=== PATIENT | female | born 1985 | race Caucasian/White ===

== ENCOUNTER 2023-09-17 22:21 | Inpatient (IN) | payer MEDICAID, OTHER ==
[2023-09-17 23:52] LABS: Amphetamine Screen,Urine Detected (NotDetected); Barbiturate Screen,Urine Not Detected (NotDetected); Benzodiazepines Screen,Urine Not Detected (NotDetected); Cocaine Screen,Urine Not Detected (NotDetected); Methadone Screen, Urine Not Detected (NotDetected); Opiate Screen,Urine Not Detected (NotDetected); Oxycodone Screen, Urine Not Detected (NotDetected); Phencyclidine Screen,Urine Not Detected (NotDetected); Tricyclic Antidepressant,Urine Not Detected (NotDetected); Urn Cannabinoid Scrn Not Detected (NotDetected)
--- NOTE | 2023-09-18 02:30 | XR ---
EXAM: XR Chest, 1 View CLINICAL HISTORY: ITS.REASON XR Reason: cough TECHNIQUE: Frontal view of the chest. COMPARISON: No relevant prior studies available. FINDINGS: Lungs: Streaky right lower lung zone opacities. Lungs appear otherwise clear. Pleural space: Unremarkable. No pleural effusion or pneumothorax. Heart: Unremarkable. No cardiomegaly or pulmonary vascular congestion. Bones/joints: No acute fracture. No dislocation. IMPRESSION: Streaky right lower lung zone opacities, potentially infiltrate.
[2023-09-18] MEDS ORDERED: AZITHROMYCIN 500 MG TAB PO STA (02:51)
[2023-09-18] MEDS: AZITHROMYCIN 500 MG TAB PO STA (03:07)
[2023-09-18] MEDS: ACETAMINOPHEN TAB 500 MG TAB PO STA (04:22)
--- NOTE | 2023-09-18 05:28 | ED ---
General Adult HPI <Dao Calixto - Last Filed: 09/18/23 17:36> - General Source: patient, RN notes reviewed, old records reviewed Mode of arrival: ambulatory Limitations: no limitations <Guzman Magana - Last Filed: 09/20/23 07:23> <Niko Reeves - Last Filed: 09/21/23 12:49> - General Chief complaint: Psychiatric Symptoms Stated complaint: mental health 7 months Time Seen by Provider: 09/17/23 22:50 - History of Present Illness Initial comments: Patient is a 38-year-old female who presents emergency department complaining of psychiatric illness. Patient is having what seems to be a manic episode vs substance abuse with flight of ideas, suicidal ideation with plan to take potass ium to overdose. Denies doing any of this. States she is also multiple months and believes it to be 8 months . Is endorsing a mild cough as well and is concerned she may have an infection. Has not followed up for . Denies any vaginal discharge or bleeding. Denies any abdominal pain, nausea, vomiting. Has no other acute complaints at this time. Presents with boyfriend for psychiatric evaluation. (Guzman Magana) - Related Data Home Medications Medication Instructions Recorded Confirmed Cephalexin [Keflex] 500 mg PO Q6H 09/18/23 09/18/23 Allergies Allergy/AdvReac Type Severity Reaction Status Date / Time diphenhydramine AdvReac Unknown Verified 09/18/23 17:58 [From Benadryl] Review of Systems ROS Other: All systems not noted in ROS Statement are negative. <DurgaDao - Last Filed: 09/18/23 17:36> ROS Other: All systems not noted in ROS Statement are negative. <Guzman Magana - Last Filed: 09/20/23 07:23> ROS Other: All systems not noted in ROS Statement are negative. <Niko Reeves - Last Filed: 09/21/23 12:49> ROS Statement: Those systems with pertinent positive or pertinent negative responses have been documented in the HPI. Review of Systems: CONST: Denies fever EYES: Denies blurry vision ENT: Endorses nasal congestion C/V: Denies Chest pain RESP: Denies shortness of breath GI: Denies abdominal pain : Denies dysuria SKIN: Denies rash. MSK: Denies joint pain. NEURO: Denies headache (Guzman Magana) Past Medical History Smoking Status: Current every day smoker, Vaper Past Alcohol Use History: Occasional Past Drug Use History: Unable to Obtain <Guzman Magana - Last Filed: 09/20/23 07:23> General Exam Limitations: no limitations <ChinoGuzman - Last Filed: 09/20/23 07:23> - General Exam Comments Initial Comments: General: Appears in no acute distress. HEAD: Normal with no signs of head trauma. EYES: PERRLA, EOMI, conjunctiva normal, no discharge. ENT: Hearing grossly intact, normal oropharynx. RESPIRATORY: Clear breath sounds bilaterally. No wheezes, rales, or rhonchi. C/V: Regular rate and rhythm. S1 and S2 auscultated, no edema, peripheral pulses 2+ and intact throughout ABD: Abd is soft, nontender, nondistended EXT: Normal range of motion, no obvious deformity SKIN: No rashes or lesions observed on exposed skin. NEURO: Alert and oriented x 4. (Guzman Magana) Course <Dao Calixto - Last Filed: 09/18/23 17:36> Vital Signs 09/17/23 09/18/23 09/18/23 22:28 06:15 07:29 Temperature 98.3 F 98.1 F Pulse Rate 117 H 92 Respiratory 18 18 16 Rate Blood Pressure 138/83 126/78 O2 Sat by Pulse 100 98 Oximetry 09/18/23 09/18/23 09/18/23 10:00 14:00 15:00 Temperature Pulse Rate Respiratory 18 18 18 Rate Blood Pressure O2 Sat by Pulse Oximetry 09/18/23 09/18/23 09/19/23 16:31 18:55 03:00 Temperature 98.2 F 98.0 F Pulse Rate 88 76 Respiratory 18 18 17 Rate Blood Pressure 121/73 120/71 O2 Sat by Pulse 99 97 Oximetry 09/19/23 09/21/23 12:21 06:51 Temperature 98.2 F Pulse Rate 102 H 78 Respiratory 18 18 Rate Blood Pressure 135/78 122/72 O2 Sat by Pulse 98 98 Oximetry - Reevaluation(s) Reevaluation #1: 09/18/23 17:36 Clinical certification was filled out by me. I did personally examine the patient. (Dao Calixto) Medical Decision Making - Lab Data Result diagrams: 09/18/23 15:08 09/18/23 15:08 <Dao Calixto - Last Filed: 09/18/23 17:36> - Lab Data Result diagrams: 09/18/23 15:08 09/18/23 15:08 - EKG Data -: EKG Interpreted by Me <Guzman Magana - Last Filed: 09/20/23 07:23> - Lab Data Result diagrams: 09/18/23 15:08 09/18/23 15:08 <Nkio Reeves - Last Filed: 09/21/23 12:49> - Medical Decision Making Was pt. sent in by a medical professional or institution (, PA, BUSHER HELPER, urgent care, hospital, or skilled nursing...) When possible be specific @ -No Did you speak to anyone other than the patient for history (EMS, parent, family, police, friend...)? What history was obtained from this source @ -No Did you review nursing and triage notes (agree or disagree)? Why? @ -I reviewed and agree with nursing and triage notes Were old charts reviewed (outside hosp., previous admission, EMS record, old EKG, old radiological studies, urgent care reports/EKG's, skilled nursing records)? Report findings @ -No old charts were reviewed Differential Diagnosis (chest pain, altered mental status, abdominal pain women, abdominal pain men, vaginal bleeding, weakness, fever, dyspnea, syncope, headache, dizziness, GI bleed, back pain, seizure, CVA, palpatations, mental health, musculoskeletal)? @ -Differential Mental Health Depression, anxiety, bipolar, psychosis, schizophrenia, borderline personality, situational depression, adjustment disorder, behavioral disorder, brain tumor, malingering, substance abuse, encephalopathy, medication reaction, dementia, hypothyroidism, degenerative neurologic disorder, lupus.... This is not meant to be all-inclusive list EKG interpreted by me (3pts min.). @ -As above X-rays interpreted by me (1pt min.). @ -Chest x-ray shows possible right lower lobe pneumonia CT interpreted by me (1pt min.). @ -None done U/S interpreted by me (1pt. min.). @ -None done What testing was considered but not performed or refused? (CT, X-rays, U/S, labs)? Why? @ -None What meds were considered but not given or refused? Why? @ -None Did you discuss the management of the patient with other professionals (professionals i.e. , PA, BUSHER HELPER, lab, RT, psych nurse, clinical social work aide, university librarian, teacher, probation and parole officer, rehabilitation caseworker)? Give summary @ -EPS notified of the consult. Was smoking cessation discussed for >3mins.? @ -No Was critical care preformed (if so, how long)? @ -No Were there social determinants of health that impacted care today? How? (Homelessness, low income, unemployed, alcoholism, drug addiction, transportation, low edu. Level, literacy, decrease access to med. care, assisted, rehab)? @ -No Was there de-escalation of care discussed even if they declined (Discuss DNR or withdrawal of care, Hospice)? DNR status @ -No What co-morbidities impacted this encounter? (DM, HTN, Smoking, COPD, CAD, Cancer, CVA, ARF, Chemo, Hep., AIDS, mental health diagnosis, sleep apnea, morbid obesity)? @ -None Was patient admitted / discharged? Hospital course, mention meds given and route, prescriptions, significant lab abnormalities, going to OR and other pertinent info. @ -Based on the patient's presentation and physical exam, presents for psychiatric evaluation. Concern for possible manic episode or psychosis. Currently is cooperative and alert and oriented. BAT is 0.122. UDS is positive for amphetamines. Patient is also noted to be with no risk factors otherwise. She has not yet followed up for this . Unknown how she is. But denies any vaginal discharge, bleeding, abdominal pain, cramping. Vital signs within acceptable limits. Chest x-ray shows findings concerning for possible developing pneumonia. She will be started on a Z-Alex. EKG shows no signs of acute ischemia. Vital signs are within acceptable limits. heart tones obtained and were within acceptable limits in the 150s. Patient will be medically cleared once sober. EPS was notified of the consult. Disposition pending psychiatric evaluation. EPS eventually evaluated the patient and determined that she does meet inpatient criteria. Patient pending psychiatric transfer. Undiagnosed new problem with uncertain prognosis? @ -No Drug Therapy requiring intensive monitoring for toxicity (Heparin, Nitro, Insulin, Cardizem)? @ -No Were any procedures done? @ -No Diagnosis/symptom? @ -Community acquired pneumonia, suicidal ideations, alcohol intoxication Acute, or Chronic, or Acute on Chronic? @ -Acute Uncomplicated (without systemic symptoms) or Complicated (systemic symptoms)? @ -Complicated Side effects of treatment? @ -None Exacerbation, Progression, or Severe Exacerbation] @ -No Poses a threat to life or bodily function? @ -Yes Diagnosis/symptom? @ - Acute, or Chronic, or Acute on Chronic? @ -Acute Uncomplicated (without systemic symptoms) or Complicated (systemic symptoms)? @ -Uncomplicated Side effects of treatment? @ -None Exacerbation, Progression, or Severe Exacerbation] @ -No Poses a threat to life or bodily function? @ -No (Guzman Magana) - Lab Data Lab Results 09/17/23 09/17/23 09/18/23 Range/Units 23:00 23:00 01:46 WBC (3.8-10.6) k/uL RBC (3.80-5.40) m/uL Hgb (11.4-16.0) gm/dL Hct (34.0-46.0) % MCV (80.0-100.0) fL MCH (25.0-35.0) pg MCHC (31.0-37.0) g/dL RDW (11.5-15.5) % Plt Count (150-450) k/uL MPV Neutrophils % % Lymphocytes % % Monocytes % % Eosinophils % % Basophils % % Neutrophils # (1.3-7.7) k/uL Lymphocytes # (1.0-4.8) k/uL Monocytes # (0-1.0) k/uL Eosinophils # (0-0.7) k/uL Basophils # (0-0.2) k/uL Hypochromasia Sodium (137-145) mmol/L Potassium (3.5-5.1) mmol/L Chloride (98-107) mmol/L Carbon Dioxide (22-30) mmol/L Anion Gap mmol/L BUN (7-17) mg/dL Creatinine (0.52-1.04) mg/dL Est GFR (CKD-EPI)AfAm (>60 ml/min/1.73 sqM) Est GFR (CKD-EPI)NonAf (>60 ml/min/1.73 sqM) Glucose (74-99) mg/dL Calcium (8.4-10.2) mg/dL Total Bilirubin (0.2-1.3) mg/dL AST (14-36) U/L ALT (4-34) U/L Alkaline Phosphatase (38-126) U/L Total Protein (6.3-8.2) g/dL Albumin (3.5-5.0) g/dL Urine Color Urine Appearance (Clear) Urine pH (5.0-8.0) Ur Specific [place] (1.001-1.035) Urine Protein (Negative) Urine Glucose (UA) (Negative) Urine Ketones (Negative) Urine Blood (Negative) Urine Nitrite (Negative) Urine Bilirubin (Negative) Urine Urobilinogen (<2.0) mg/dL Ur Leukocyte Esterase (Negative) Urine WBC (0-5) /hpf Ur Squamous Epith Cells (0-4) /hpf Amorphous Sediment (None) /hpf Urine Mucus (None) /hpf Urine HCG, Qual Detected (Not Detectd) Urine Opiates Screen Not Detected (NotDetected) Ur Oxycodone Screen Not Detected (NotDetected) Urine Methadone Screen Not Detected (NotDetected) Ur Barbiturates Screen Not Detected (NotDetected) U Tricyclic Antidepress Not Detected (NotDetected) Ur Phencyclidine Scrn Not Detected (NotDetected) Ur Amphetamines Screen Detected H (NotDetected) U Methamphetamines Scrn Not Detected (NotDetected) U Benzodiazepines Scrn Not Detected (NotDetected) Urine Cocaine Screen Not Detected (NotDetected) U Marijuana (THC) Screen Not Detected (NotDetected) Influenza Type A (PCR) Not Detected (Not Detectd) Influenza Type B (PCR) Not Detected (Not Detectd) RSV (PCR) Not Detected (Not Detectd) SARS-CoV-2 (PCR) Not Detected (Not Detectd) 09/18/23 09/18/23 09/18/23 Range/Units 15:08 15:08 15:57 WBC 10.4 (3.8-10.6) k/uL RBC 3.45 L (3.80-5.40) m/uL Hgb 9.5 L (11.4-16.0) gm/dL Hct 29.4 L (34.0-46.0) % MCV 85.0 (80.0-100.0) fL MCH 27.6 (25.0-35.0) pg MCHC 32.4 (31.0-37.0) g/dL RDW 14.3 (11.5-15.5) % Plt Count 370 (150-450) k/uL MPV 8.0 Neutrophils % 71 % Lymphocytes % 17 % Monocytes % 5 % Eosinophils % 5 % Basophils % 1 % Neutrophils # 7.4 (1.3-7.7) k/uL Lymphocytes # 1.8 (1.0-4.8) k/uL Monocytes # 0.5 (0-1.0) k/uL Eosinophils # 0.5 (0-0.7) k/uL Basophils # 0.1 (0-0.2) k/uL Hypochromasia Slight Sodium 135 L (137-145) mmol/L Potassium 3.6 (3.5-5.1) mmol/L Chloride 110 H (98-107) mmol/L Carbon Dioxide 18 L (22-30) mmol/L Anion Gap 7 mmol/L BUN 6 L (7-17) mg/dL Creatinine 0.40 L (0.52-1.04) mg/dL Est GFR (CKD-EPI)AfAm >90 (>60 ml/min/1.73 sqM) Est GFR (CKD-EPI)NonAf >90 (>60 ml/min/1.73 sqM) Glucose 116 H (74-99) mg/dL Calcium 8.2 L (8.4-10.2) mg/dL Total Bilirubin 0.3 (0.2-1.3) mg/dL AST 26 (14-36) U/L ALT 17 (4-34) U/L Alkaline Phosphatase 103 (38-126) U/L Total Protein 5.3 L (6.3-8.2) g/dL Albumin 2.5 L (3.5-5.0) g/dL Urine Color Colorless Urine Appearance Cloudy H (Clear) Urine pH 8.0 (5.0-8.0) Ur Specific [place] 1.012 (1.001-1.035) Urine Protein Negative (Negative) Urine Glucose (UA) Negative (Negative) Urine Ketones Negative (Negative) Urine Blood Negative (Negative) Urine Nitrite Negative (Negative) Urine Bilirubin Negative (Negative) Urine Urobilinogen <2.0 (<2.0) mg/dL Ur Leukocyte Esterase Trace H (Negative) Urine WBC 2 (0-5) /hpf Ur Squamous Epith Cells 2 (0-4) /hpf Amorphous Sediment Rare H (None) /hpf Urine Mucus Rare H (None) /hpf Urine HCG, Qual (Not Detectd) Urine Opiates Screen (NotDetected) Ur Oxycodone Screen (NotDetected) Urine Methadone Screen (NotDetected) Ur Barbiturates Screen (NotDetected) U Tricyclic Antidepress (NotDetected) Ur Phencyclidine Scrn (NotDetected) Ur Amphetamines Screen (NotDetected) U Methamphetamines Scrn (NotDetected) U Benzodiazepines Scrn (NotDetected) Urine Cocaine Screen (NotDetected) U Marijuana (THC) Screen (NotDetected) Influenza Type A (PCR) (Not Detectd) Influenza Type B (PCR) (Not Detectd) RSV (PCR) (Not Detectd) SARS-CoV-2 (PCR) (Not Detectd) 09/21/23 Range/Units 10:30 WBC (3.8-10.6) k/uL RBC (3.80-5.40) m/uL Hgb (11.4-16.0) gm/dL Hct (34.0-46.0) % MCV (80.0-100.0) fL MCH (25.0-35.0) pg MCHC (31.0-37.0) g/dL RDW (11.5-15.5) % Plt Count (150-450) k/uL MPV Neutrophils % % Lymphocytes % % Monocytes % % Eosinophils % % Basophils % % Neutrophils # (1.3-7.7) k/uL Lymphocytes # (1.0-4.8) k/uL Monocytes # (0-1.0) k/uL Eosinophils # (0-0.7) k/uL Basophils # (0-0.2) k/uL Hypochromasia Sodium (137-145) mmol/L Potassium (3.5-5.1) mmol/L Chloride (98-107) mmol/L Carbon Dioxide (22-30) mmol/L Anion Gap mmol/L BUN (7-17) mg/dL Creatinine (0.52-1.04) mg/dL Est GFR (CKD-EPI)AfAm (>60 ml/min/1.73 sqM) Est GFR (CKD-EPI)NonAf (>60 ml/min/1.73 sqM) Glucose (74-99) mg/dL Calcium (8.4-10.2) mg/dL Total Bilirubin (0.2-1.3) mg/dL AST (14-36) U/L ALT (4-34) U/L Alkaline Phosphatase (38-126) U/L Total Protein (6.3-8.2) g/dL Albumin (3.5-5.0) g/dL Urine Color Urine Appearance (Clear) Urine pH (5.0-8.0) Ur Specific [place] (1.001-1.035) Urine Protein (Negative) Urine Glucose (UA) (Negative) Urine Ketones (Negative) Urine Blood (Negative) Urine Nitrite (Negative) Urine Bilirubin (Negative) Urine Urobilinogen (<2.0) mg/dL Ur Leukocyte Esterase (Negative) Urine WBC (0-5) /hpf Ur Squamous Epith Cells (0-4) /hpf Amorphous Sediment (None) /hpf Urine Mucus (None) /hpf Urine HCG, Qual (Not Detectd) Urine Opiates Screen (NotDetected) Ur Oxycodone Screen (NotDetected) Urine Methadone Screen (NotDetected) Ur Barbiturates Screen (NotDetected) U Tricyclic Antidepress (NotDetected) Ur Phencyclidine Scrn (NotDetected) Ur Amphetamines Screen (NotDetected) U Methamphetamines Scrn (NotDetected) U Benzodiazepines Scrn (NotDetected) Urine Cocaine Screen (NotDetected) U Marijuana (THC) Screen (NotDetected) Influenza Type A (PCR) (Not Detectd) Influenza Type B (PCR) (Not Detectd) RSV (PCR) (Not Detectd) SARS-CoV-2 (PCR) Not Detected (Not Detectd) - EKG Data EKG Comments: 12-lead Electrocardiogram Interpretation Note EKG was reviewed and interpreted by myself. 12-lead ECG performed at 0140 is interpreted by me as revealing sinus tachycardia at a rate of 103 beats per minute. [place] is normal. ID interval is 131 ms, QRS duration is 83 ms, QTc is 407 ms.. There were no ST or T wave abnormalities to suggest myocardial ischemia or injury. R wave progression across the precordium was satisfactory. By my interpretation this EKG is non-diagnostic for acute ischemia. (Guzman Magana) Disposition <Dao Calixto - Last Filed: 09/18/23 17:36> <Guzman Magana - Last Filed: 09/20/23 07:23> <Niko Reeves - Last Filed: 09/21/23 12:49> Clinical Impression: Suicidal ideation, , Community acquired pneumonia, Alcohol intoxication Disposition: ADMITTED IP TO THIS HOSP Condition: Stable Referrals: None,Stated [Primary Care Provider] - 1-2 days
[2023-09-18 15:28] LABS: Basophils # (A) 0.1 k/uL (0-0.2); Basophils % (A) 1 %; Eosinophils # (A) 0.5 k/uL (0-0.7); Eosinophils % (A) 5 %; HCT 29.4 % (34.0-46.0); HGB 9.5 gm/dL (11.4-16.0); Hypochromasia Slight; Lymphocytes # (A) 1.8 k/uL (1.0-4.8); Lymphocytes % (A) 17 %; MCH 27.6 pg (25.0-35.0); MCHC 32.4 g/dL (31.0-37.0); Monocytes # (A) 0.5 k/uL (0-1.0); Monocytes % (A) 5 %; Neutrophils # (A) 7.4 k/uL (1.3-7.7); Neutrophils % (A) 71 %; Platelet Count 370 k/uL (150-450); RBC 3.45 m/uL (3.80-5.40); RDW 14.3 % (11.5-15.5); WBC 10.4 k/uL (3.8-10.6)
[2023-09-18 15:37] LABS: ALT 17 U/L (4-34); AST 26 U/L (14-36); African American GFR (CKD) >90 (>60 ml/min/1.73 sqM); Albumin 2.5 g/dL (3.5-5.0); Alkaline Phosphatase 103 U/L (38-126); Anion Gap 7 mmol/L; Blood Urea Nitrogen 6 mg/dL (7-17); Calcium 8.2 mg/dL (8.4-10.2); Carbon Dioxide 18 mmol/L (22-30); Chloride 110 mmol/L (98-107); Glucose 116 mg/dL (74-99); Non-African American GFR(CKD) >90 (>60 ml/min/1.73 sqM); Potassium 3.6 mmol/L (3.5-5.1); Sodium 135 mmol/L (137-145); Total Bilirubin 0.3 mg/dL (0.2-1.3); Total Protein 5.3 g/dL (6.3-8.2)
[2023-09-18] MEDS: MAG HYDROX/AL HYDROX/SIMETH 30 ML CUP PO STA (15:49)
[2023-09-18 16:13] LABS: Amorphous Sediment,Urine Rare /hpf; Appearance,Urine Cloudy (Clear); Bilirubin,Urine Negative (Negative); Blood,Urine Negative (Negative); Color,Urine Colorless; Glucose,Urine (UA) Negative (Negative); Ketones,Urine Negative (Negative); Leukocyte Esterase,Urine Trace (Negative); Mucus,Urine Rare /hpf; Nitrite,Urine Negative (Negative); Protein,Urine Negative (Negative); Specific Gravity,Urine 1.012 (1.001-1.035); Squamous Epithelial Cell,Urine 2 /hpf (0-4); Urobilinogen,Urine <2.0 mg/dL (<2.0); WBC,Urine 2 /hpf (0-5)
[2023-09-18] MEDS: CEPHALEXIN 500 MG CAP PO SCH (19:06)
[2023-09-19] MEDS: MAG HYDROX/AL HYDROX/SIMETH 30 ML CUP PO STA ×2 (00:59→09:32)
[2023-09-19] MEDS ORDERED: AZITHROMYCIN 250 MG TAB PO SCH (09:00)
[2023-09-19] MEDS: FAMOTIDINE 20 MG TAB PO STA (14:54)
[2023-09-20] MEDS: CALCIUM CARBONATE 500 MG CHEWABLE PO PRN (22:47)
[2023-09-21] MEDS: FAMOTIDINE 20 MG TAB PO STA ×2 (00:05→00:36)
--- NOTE | 2023-09-21 11:55 | US ---
EXAMINATION TYPE: US OB >= 14 wk fetus DATE OF EXAM: 09/21/2023 COMPARISON: None CLINICAL INDICATION: Female, 38 years old with history of Determine length of gestation; suicidal pat ient with h/o drug use, unknown dates, no pain or bleeding TECHNIQUE: OBTA GESTATIONAL AGE / DATING Physician Established: Not yet established Dates by LMP: LMP unknown Dates by First Scan: No previous this is first scan Dates by Current Scan: (30 weeks/1 days) EDC: 11/29/2023 SURVEY IUP: Single PLACENTA: Anterior PREVIA: No Previa DE: 22.1 cm Normal CERVICAL LENGTH (transabdominal: norm > 3.0cm): 3.3 cm BIOMETRY PRESENTATION: Breech LIE: Longitudinal BPD: 7.5 cm 30 weeks / 1 days HC: 28.0 cm 30 weeks / 5 days AC: 25.9 cm 30 weeks / 1 days FL: 5.5 cm 29 weeks / 1 days ESTIMATED WEIGHT IN GRAMS: 1456 grams ESTIMATED WEIGHT IN LBS/OZ: 3 lbs. 3 oz. HC/AC: 1.1 Normal FL/AC: 21 Normal HEART RATE: 139 bpm RHYTHM: Normal IMPRESSION: Viable 30 weeks 3 days with a heart rate 139 bpm. EDC of 11/29/2023.
[2023-09-21] MEDS ORDERED: IBUPROFEN 600 MG TAB PO PRN (13:25)
[2023-09-21] MEDS: MAG HYDROX/AL HYDROX/SIMETH 30 ML CUP PO PRN (15:15)
[2023-09-21] MEDS: QUEtiapine 25 MG TAB PO PRN (15:16)
[2023-09-22] MEDS: FAMOTIDINE 20 MG TAB PO STA (04:25)
[2023-09-22] MEDS: FAMOTIDINE 20 MG TAB PO SCH (09:10)
--- NOTE | 2023-09-22 10:32 | P.HP ---
Psychiatric H&P - . H&P Date: 09/22/23 History & Physical: Allergies Allergy/AdvReac Type Severity Reaction Status Date / Time diphenhydramine AdvReac Unknown Verified 09/18/23 17:58 [From Benadryl] Vital Signs Temp 97.1 F L 09/21/23 15:01 Pulse 95 09/21/23 15:01 Resp 18 09/21/23 15:01 BP 132/71 09/21/23 15:01 Pulse Ox 100 09/21/23 15:01 FiO2 Intake & Output 09/21/23 09/22/23 09/22/23 18:59 06:59 18:59 Weight 74.9 kg Laboratory Last Values WBC 10.4 k/uL (3.8-10.6) 09/18/23 15:08 RBC 3.45 m/uL (3.80-5.40) L 09/18/23 15:08 Hgb 9.5 gm/dL (11.4-16.0) L 09/18/23 15:08 Hct 29.4 % (34.0-46.0) L 09/18/23 15:08 MCV 85.0 fL (80.0-100.0) 09/18/23 15:08 MCH 27.6 pg (25.0-35.0) 09/18/23 15:08 MCHC 32.4 g/dL (31.0-37.0) 09/18/23 15:08 RDW 14.3 % (11.5-15.5) 09/18/23 15:08 Plt Count 370 k/uL (150-450) 09/18/23 15:08 MPV 8.0 09/18/23 15:08 Neutrophils % 71 % 09/18/23 15:08 Lymphocytes % 17 % 09/18/23 15:08 Monocytes % 5 % 09/18/23 15:08 Eosinophils % 5 % 09/18/23 15:08 Basophils % 1 % 09/18/23 15:08 Neutrophils # 7.4 k/uL (1.3-7.7) 09/18/23 15:08 Lymphocytes # 1.8 k/uL (1.0-4.8) 09/18/23 15:08 Monocytes # 0.5 k/uL (0-1.0) 09/18/23 15:08 Eosinophils # 0.5 k/uL (0-0.7) 09/18/23 15:08 Basophils # 0.1 k/uL (0-0.2) 09/18/23 15:08 Hypochromasia Slight 09/18/23 15:08 Sodium 135 mmol/L (137-145) L 09/18/23 15:08 Potassium 3.6 mmol/L (3.5-5.1) 09/18/23 15:08 Chloride 110 mmol/L (98-107) H 09/18/23 15:08 Carbon Dioxide 18 mmol/L (22-30) L 09/18/23 15:08 Anion Gap 7 mmol/L 09/18/23 15:08 BUN 6 mg/dL (7-17) L 09/18/23 15:08 Creatinine 0.40 mg/dL (0.52-1.04) L 09/18/23 15:08 Est GFR (CKD-EPI)AfAm >90 (>60 ml/min/1.73 sqM) 09/18/23 15:08 Est GFR (CKD-EPI)NonAf >90 (>60 ml/min/1.73 sqM) 09/18/23 15:08 Glucose 116 mg/dL (74-99) H 09/18/23 15:08 Calcium 8.2 mg/dL (8.4-10.2) L 09/18/23 15:08 Total Bilirubin 0.3 mg/dL (0.2-1.3) 09/18/23 15:08 AST 26 U/L (14-36) 09/18/23 15:08 ALT 17 U/L (4-34) 09/18/23 15:08 Alkaline Phosphatase 103 U/L (38-126) 09/18/23 15:08 Total Protein 5.3 g/dL (6.3-8.2) L 09/18/23 15:08 Albumin 2.5 g/dL (3.5-5.0) L 09/18/23 15:08 Urine Color Colorless 09/18/23 15:57 Urine Appearance Cloudy (Clear) H 09/18/23 15:57 Urine pH 8.0 (5.0-8.0) 09/18/23 15:57 Ur Specific [place] 1.012 (1.001-1.035) 09/18/23 15:57 Urine Protein Negative (Negative) 09/18/23 15:57 Urine Glucose (UA) Negative (Negative) 09/18/23 15:57 Urine Ketones Negative (Negative) 09/18/23 15:57 Urine Blood Negative (Negative) 09/18/23 15:57 Urine Nitrite Negative (Negative) 09/18/23 15:57 Urine Bilirubin Negative (Negative) 09/18/23 15:57 Urine Urobilinogen <2.0 mg/dL (<2.0) 09/18/23 15:57 Ur Leukocyte Esterase Trace (Negative) H 09/18/23 15:57 Urine WBC 2 /hpf (0-5) 09/18/23 15:57 Ur Squamous Epith Cells 2 /hpf (0-4) 09/18/23 15:57 Amorphous Sediment Rare /hpf (None) H 09/18/23 15:57 Urine Mucus Rare /hpf (None) H 09/18/23 15:57 Urine HCG, Qual Detected (Not Detectd) 09/17/23 23:00 Urine Opiates Screen Not Detected (NotDetected) 09/17/23 23:00 Ur Oxycodone Screen Not Detected (NotDetected) 09/17/23 23:00 Urine Methadone Screen Not Detected (NotDetected) 09/17/23 23:00 Ur Barbiturates Screen Not Detected (NotDetected) 09/17/23 23:00 U Tricyclic Antidepress Not Detected (NotDetected) 09/17/23 23:00 Ur Phencyclidine Scrn Not Detected (NotDetected) 09/17/23 23:00 Ur Amphetamines Screen Detected (NotDetected) H 09/17/23 23:00 U Methamphetamines Scrn Not Detected (NotDetected) 09/17/23 23:00 U Benzodiazepines Scrn Not Detected (NotDetected) 09/17/23 23:00 Urine Cocaine Screen Not Detected (NotDetected) 09/17/23 23:00 U Marijuana (THC) Screen Not Detected (NotDetected) 09/17/23 23:00 Influenza Type A (PCR) Not Detected (Not Detectd) 09/18/23 01:46 Influenza Type B (PCR) Not Detected (Not Detectd) 09/18/23 01:46 RSV (PCR) Not Detected (Not Detectd) 09/18/23 01:46 SARS-CoV-2 (PCR) Not Detected (Not Detectd) 09/21/23 10:30 09/22/23 10:27 This is a psychiatric assessment on this patient was a 38-year-old female with long history of depression Patient reports that she also has a history of depression She stated that she has a 5-year-old child from a previous relationship that is now living with his biological father She said that in between she had had an few years ago She says that she is currently here because of depression and that she said about 7 months She says that she is currently taking some Seroquel when necessary but now on her condition to get any worse She denies that she is suicidal or homicidal but states that she came in as a precautionary measure She said that she currently lives with her boyfriend who is supportive She denies any suicidal or homicidal ideations denied any auditory or visual hallucinations She admits that she however was feeling overwhelmed helpless and hopeless and was afraid that she might do something and came in for safety She is not sure if she wants to take any medications if it does had any effect on the unborn child Past history personal and social history Patient has mentioned above remained somewhat vague and superficial She currently lives with her boyfriend She is currently unemployed She denies any alcohol or substance use She remains very superficial about any past psychiatric treatment but states that she has not been following up in any therapy or treatment Mental status examination: Reveals a middle-aged female who looks somewhat older for age. Patient is alert and oriented to place and person Patient has her hair dyed red and is in street clothes are bright in color Affect at this time appears to be fair Thought processes are goal-directed sequential and logical Patient denies any suicidal or homicidal ideations or plans Cognitively she appears be intact Patient's formal and operational judgment appears to be fair Patient does seem to have insight Diagnostic impression: Adjustment disorder with mixed emotional features Major depressive disorder chronic with acute exacerbation Rule out personality disorder with borderline traits History of depression Plan: IMPRESSIONS: psychosis, unspecified cannabis use disorder PLAN: -Patient is admitted under involuntary status to [facility]HU for stabilization of psychiatric symptoms and safety. -Medications : Patient was prescribed Seroquel 25 mg 3 times a day she has been taking it as needed basis Patient was briefed on the effects and side effects including being class C drug as well as all the other drugs that may be recommended which may belong to the same class and that there is always a certain degree of risk and we'll hold although with her being in seventh month that there also appears to be less concerned as in the first trimester -NRT - nonsmoker -SW on board for discharge planning. Encourage patient to participate in groups to work on coping skills. Will await deferral and court date. Patient will also participate in on the [facility] activities individual milieu group OT RT PT and pharmacotherapy Approximately length of stay would be 5-7 days Micah Hoskins M.D.
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
[2023-09-22] MEDS: PRENATAL VIT-IRON-FOLIC ACID 1 EACH TABLET PO SCH (17:44)
[2023-09-23] MEDS: DOCUSATE 100 MG CAP PO PRN (10:12)
[2023-09-23] MEDS: DIPH,PERTUS(ACELL)TETVAC-LF 0.5 ML VIAL IM ONE (10:18)
--- NOTE | 2023-09-23 12:01 | P.PN ---
Subjective Progress Note Date: 09/23/23 Principal diagnosis: Adjustment disorder with mixed emotional features Psychotic disorder unspecified Polysubstance use disorder Alcohol use disorder Subjective data: Patient admits that she has been dealing with mood swings and depression although she continues to minimize that she's been drinking as well as using different drugs When asked about the specific drugs that she has used patient states that she does not want to have that go on her chart She reports that emotionally she is feeling better She said that she wants to take the Seroquel as a scheduled medication since she does not seem to remember to ask for the when necessary doses She stated that she is coping better and is thinking about going back to her routine life She says that she realizes that none of the medications will be safe in the but continues to minimize her polysubstance use disorder until now she says that part of the time she was unaware that she was even Mental status examination: Mental status examination: Reveals a middle-aged female who looks somewhat older for age. Patient is alert and oriented to place and person Patient has her hair dyed red and is in street clothes are bright in color Affect at this time appears to be fair Thought processes are goal-directed sequential and logical Patient denies any suicidal or homicidal ideations or plans Cognitively she appears be intact Patient's formal and operational judgment appears to be fair Patient does seem to have insight continues to rationalize intellectualize Diagnostic impression: Adjustment disorder with mixed emotional features Major depressive disorder chronic with acute exacerbation Rule out personality disorder with borderline traits History of depression Alcohol use disorder Polysubstance use disorder PLAN: -Patient is admitted under involuntary status to [facility] for stabilization of psychiatric symptoms and safety. -Medications : Patient was prescribed Seroquel 25 mg 3 times a day she has been taking it as needed basis and wants to change it to regular dosage Patient was briefed on the effects and side effects including being class C drug as well as all the other drugs that may be recommended which may belong to the same class and that there is always a certain degree of risk and we'll hold although with her being in seventh month that there also appears to be less concerned as in the first trimester -NRT - nonsmoker -SW on board for discharge planning. Encourage patient to participate in groups to work on coping skills. Will await deferral and court date. Patient will also participate in on the [facility] activities individual milieu group OT RT PT and pharmacotherapy Approximately length of stay would be 5-7 days Micah Hoskins M.D. Objective - Vital Signs Vital signs: Vital Signs Temp 97.9 F 09/23/23 02:35 Pulse 113 H 09/23/23 02:35 Resp 16 09/23/23 02:35 BP 115/74 09/23/23 02:35 Pulse Ox 100 09/21/23 15:01 FiO2 - Labs CBC & Chem 7: 09/18/23 15:08 09/18/23 15:08
[2023-09-23] MEDS: FERROUS SULFATE 325 MG TAB PO SCH (13:31)
[2023-09-23] MEDS: QUEtiapine 25 MG TAB PO SCH (15:13)
[2023-09-23 16:46] LABS: Hepatitis B Surface Antigen Nonreactive
[2023-09-23 20:23] LABS: HIV 2 AB Non-Reactive (Non-Reactive); HIV AB P24 Non-Reactive (Non-Reactive); HIV P24 AG Non-Reactive (Non-Reactive)
[2023-09-23 20:32] LABS: Chol/HDL Ratio 4.45 Ratio; LDL Cholesterol,Calculated 148.7 mg/dL (0.0-131.0)
[2023-09-23] MEDS: FAMOTIDINE 20 MG TAB PO SCH (21:25)
[2023-09-24] MEDS: ACETAMINOPHEN TAB 325 MG TAB PO PRN (04:08)
[2023-09-24] MEDS ORDERED: DOCUSATE 100 MG CAP PO SCH (09:00)
--- NOTE | 2023-09-24 12:04 | P.PN ---
Subjective Progress Note Date: 09/24/23 Principal diagnosis: Adjustment disorder with mixed emotional features Psychotic disorder unspecified Polysubstance use disorder Alcohol use disorder Subjective data: The patient was seen chart was reviewed and case discussed with the nursing staff Patient reports that she is doing well and stopped having any issues or concerns She states that she is sleeping and eating better she stated entire to confirm that she wanted to take her Seroquel on a regular basis She states that it does seem to keep her calm and more relaxed Patient wanted any discussion about her substance use issues and problems Mental status examination: Mental status examination: Reveals a middle-aged female who looks somewhat older for age. Patient is alert and oriented to place and person Patient has her hair dyed red and is in street clothes are bright in color Affect at this time appears to be fair Thought processes are goal-directed sequential and logical Patient denies any suicidal or homicidal ideations or plans Cognitively she appears be intact Patient's formal and operational judgment appears to be fair Patient does seem to have insight continues to rationalize intellectualize Diagnostic impression: Adjustment disorder with mixed emotional features Major depressive disorder chronic with acute exacerbation Rule out personality disorder with borderline traits History of depression Alcohol use disorder Polysubstance use disorder PLAN: -Patient is admitted under involuntary status to [facility] for stabilization of psychiatric symptoms and safety. -Medications : Patient was prescribed Seroquel 25 mg 3 times a day she has been taking it as needed basis and wants to change it to regular dosage Patient was briefed on the effects and side effects including being class C drug as well as all the other drugs that may be recommended which may belong to the same class and that there is always a certain degree of risk and we'll hold although with her being in seventh month that there also appears to be less concerned as in the first trimester -NRT - nonsmoker -SW on board for discharge planning. Encourage patient to participate in groups to work on coping skills. Will await deferral and court date. Patient will also participate in on the [facility] activities individual milieu group OT RT PT and pharmacotherapy Approximately length of stay would be 5-7 days Micah Aidee Cervantes Objective - Vital Signs Vital signs: Vital Signs Temp 97.9 F 09/23/23 02:35 Pulse 113 H 09/23/23 02:35 Resp 16 09/23/23 02:35 BP 115/74 09/23/23 02:35 Pulse Ox 100 09/21/23 15:01 FiO2 - Labs CBC & Chem 7: 09/18/23 15:08 09/18/23 15:08 Labs: Abnormal Lab Results - Last 24 Hours (Table) 09/23/23 09/23/23 Range/Units 08:19 08:19 Triglycerides 268.00 H (0.00-149.00) mg/dL Cholesterol 261.00 H (0.00-200.00) mg/dL LDL Cholesterol, Calc 148.7 H (0.0-131.0) mg/dL VLDL Cholesterol, Calc 53.60 H (5.00-40.00) mg/dL Rubella IgG Antibody 119.00 H (0.00-9.00) IU/mL
[2023-09-25] MEDS: MAGNESIUM HYDROXIDE 2,400 MG/30 ML CUP PO PRN (14:32)
[2023-09-25] MEDS: SERTRALINE 25 MG TAB PO SCH (18:51)
--- NOTE | 2023-09-25 20:28 | P.PN ---
Progress Note - Text Progress Note Date: 09/25/23 Interval History: She was initially quite irritable with jingle writer and later apoligized and requested to speak with jingle writer again. Patient was seen wandering the hallways and was directable and agreeable to speak with jingle writer in the office. She reported a history of depression. She was concerned about her significant alcohol intake while recently. She is concerned about using any medication given this history. Discussed risks, benefits, side effects at length about Zoloft and Seroquel during . Provided patient with handouts about both medications. Patient was interested in being on both medications for her mental health given that lack of treatment for depression comes with numerous risks. She states that she has been having trouble staying asleep and asks that her Seroquel dose be consolidated more at bedtime to help with this. She endorses good appetite but says she felt tired in the morning. At this time patient denies any suicidal or homicidal ideations, intent or plan. Patient denies any auditory, visual hallucinations and denies any paranoia or delusions. Patient denies any side effects from the medications and has been compliant with meds. Vital Signs Temp 96.9 F L 09/25/23 00:41 Pulse 115 H 09/25/23 00:41 Resp 16 09/25/23 00:41 BP 111/84 09/25/23 00:41 Pulse Ox 100 09/21/23 15:01 FiO2 Mental Status Exam: General Appearance: Patient appears to be stated age is alert, directable, and cooperative. Short hair dyed red Behavior: Restless Speech: Patient's speech is fluent and nonpressured. Mood/Affect: Mood is anxious, improving mildly, affect is congruent and constricted. Suicidality/Homicidality: Patient denies having any suicidal or homicidal ideation intent or plan. Perceptions: Patient denies any visual hallucinations and denies any auditory hallucinations Though content/process: There is no evidence of any delusional thought content and thought process is linear and goal-directed. Memory and concentration: AOX3, grossly intact for the purposes of this session Judgment and insight: Improving mildly Assessment Adjustment disorder with mixed emotional features Major depressive disorder Rule out personality disorder with borderline traits History of depression Alcohol use disorder Polysubstance use disorder Plan: -Patient is admitted under involuntary status to [facility] for stabilization of psychiatric symptoms and safety. -Medications : Change Seroquel to 25 mg qnoon and 50 mg qHS Start Zoloft 25 mg daily for depression -Discussed the above meds in at length. social insurance administrator on board and may also continue discussion with them -NRT - nonsmoker -SW on board for discharge planning. Encourage patient to participate in groups to work on coping skills. Will await deferral and court date. Patient has been compliant with meds
[2023-09-25] MEDS: QUEtiapine 50 MG TAB PO SCH (20:56)
--- NOTE | 2023-09-26 13:12 | P.PN ---
Progress Note - Text Progress Note Date: 09/26/23 Interval History: She was seen speaking with spouse and was agreeable to speak with this documentation writer in the interview room. She reports feeling significantly better since being gone Seroquel and Zoloft. She states that she things this was the right change to make. She reports having read the brochures on Seroquel and Zoloft that were provided which included information on impact of these medications on and . She appears to be significantly brighter this morning and is smiling. She states that she had some difficulty sleeping last night due to discomfort with abdomen but slept during the daytime yesterday. She was agreeable with dosage increase of Seroquel to 100 mg. She endorses good appetite. She reports good energy and denies all other concerns. She has anxieties about the impact of her alcohol intake on the baby. She voices numerous concerns about her responsibilities and future but is able to redirect herself without catastrophizing. She says she is looking forward to being set up with appointment with [facility]. She is also interested in going to rehab. She is hoping to be discharged tomorrow since she has been feeling better At this time patient denies any suicidal or homicidal ideations, intent or plan. Patient denies any auditory, visual hallucinations and denies any paranoia or delusions. Patient denies any side effects from the medications and has been compliant with meds. Vital Signs Temp 97.8 F 09/26/23 06:55 Pulse 103 H 09/26/23 06:55 Resp 16 09/26/23 06:55 BP 119/66 09/26/23 06:55 Pulse Ox 97 09/26/23 06:55 FiO2 Mental Status Exam: General Appearance: Patient appears to be stated age is alert, directable, and cooperative. Short hair dyed red in a bun with a hair tie and ketchup packet in her hair Behavior: Makes many hand gestures Speech: Patient's speech is fluent and nonpressured. Mood/Affect: Mood is anxious, improving mildly, affect is congruent and constricted. Suicidality/Homicidality: Patient denies having any suicidal or homicidal ideation intent or plan. Perceptions: Patient denies any visual hallucinations and denies any auditory hallucinations Though content/process: There is no evidence of any delusional thought content and thought process is linear and goal-directed. Memory and concentration: AOX3, grossly intact for the purposes of this session Judgment and insight: Improving mildly Assessment Adjustment disorder with mixed emotional features Major depressive disorder Rule out personality disorder with borderline traits History of depression Alcohol use disorder Polysubstance use disorder Plan: -Patient is admitted under voluntary status to [facility] for stabilization of psychiatric symptoms and safety. -Medications : Change Seroquel to 100 mg qHS for mood and sleep Continue Zoloft 25 mg daily for depression -Discussed the above meds in at length. preventive maintenance coordinator on board. Patient was agreeable with being on the medications and expressed understanding for potential risks, benefits, and side effects. -NRT - nonsmoker -Discussed impact of substance use on mental health and . Patient is interested in rehab -SW on board for discharge planning. Encourage patient to participate in groups to work on coping skills. Patient has been compliant with meds. Likely discharge tomorrow if continuing to improve
[2023-09-26] MEDS ORDERED: QUEtiapine 25 MG TAB PO SCH (14:00)
--- NOTE | 2023-09-26 18:21 | P.MDCNMH ---
History of Present Illness H&P Date: 09/26/23 Chief Complaint: Medical evaluation 38-year-old woman with medical history of migraines, MS presenting for evaluation of mental health care. Medicine was consulted for medical management. Patient has no complaints at this time. Her only medical history is migraines for which she previously took Topamax as well as MS for which she previously saw Dr. Jacobs in [place] presently she is not taking medications for either. Patient has fevers, chills, nausea, vomiting. Patient is hemodynamically stable. Hemoglobin is 9.5. Sodium is 135. CO2 is 18. Kidney function is good. Lipid panel shows triglycerides of 268, LDL of 148.7. UA showed trace leukocyte Estrace. HIV, hepatitis B, hepatitis C are negative. Rubella titers are positive. COVID was negative. Influenza A, B, RSV were negative. Treponema antibody was negative. Gen: In NAD, non-toxic HEENT: normocephalic, atraumatic, hearing acuity is intant, mucous membranes moist CVS: perfusing all extremities well, no pitting edema, Respiratory: symmetric chest expansion, no accessory muscle use, GI: soft, NTTP, ND, : no suprapubic tenderness, no CVA tenderness MSK/Derm: no rashes, cyanosis Neuro: CN II-XII intact, no motor weakness, Psych: cooperative, euthymic mood, judgment and insight is intact Labs and imaging as above Assessment/plan: Hyperlipidemia Hypertriglyceridemia -This patient will need to have her labs rechecked 3 months after delivery to verify need for initiation of statin History of MS History of migraines -Tylenol as needed -Follow-up with neurology outpatient regarding MS Patient is full code Thank you for this consult, please do not hesitate to contact us if there are any further questions or concerns. Past Medical History Past Medical History: No Reported History History of Any Multi-Drug Resistant Organisms: None Reported Past Surgical History: No Surgical Hx Reported Past Psychological History: Depression Smoking Status: Smoker, current status unknown, Vaper Past Alcohol Use History: Occasional Past Drug Use History: None Reported Additional Drug Use History / Comment(s): pt denies substance use. pt BAT 0.122 upon arrival to ER. UDS positive for amphetamines. Medications and Allergies Home Medications Medication Instructions Recorded Confirmed Type Cephalexin [Keflex] 500 mg PO Q6H 09/18/23 09/18/23 History Allergies Allergy/AdvReac Type Severity Reaction Status Date / Time diphenhydramine AdvReac Unknown Verified 09/18/23 17:58 [From Benadryl] Physical Exam Osteopathic Statement: *. No significant issues noted on an osteopathic structural exam other than those noted in the History and Physical/Consult. Vitals: Vital Signs Temp Pulse Resp BP Pulse Ox 09/26/23 06:55 97.8 F 103 H 16 119/66 97 Intake and Output 09/26/23 09/26/23 09/26/23 06:59 14:59 22:59 Other: Weight 74.525 kg Cranial Nerve Examination - Cranial Nerves Cranial Nerve II- Optic: Intact Cranial Nerve III- Oculomotor: Intact Cranial Nerve IV- Trochlear: Intact Cranial Nerve V- Trigeminal: Intact Cranial Nerve - Abducens: Intact Cranial Nerve VII- Facial: Intact Cranial Nerve VIII- Auditory: Intact Cranial Nerve IX- Glossopharyngeal: Intact Cranial Nerve X- Vagus: Intact Cranial Nerve XI- Accessory: Intact Cranial Nerve XII- Hypoglossal: Intact Results CBC & Chem 7: 09/18/23 15:08 09/18/23 15:08
[2023-09-26] MEDS: QUEtiapine 100 MG TAB PO SCH (21:24)
[2023-09-27 07:21] VITALS: BP 97/51; PULSE 89; RESP 14; TEMP 98.1
--- NOTE | 2023-09-27 09:58 | P.DS ---
Providers Date of admission: 09/21/23 13:20 Expected date of discharge: 09/27/23 Attending physician: Dov Lee MD Consults: 09/21/23 13:25 Consult Physician Routine Consulting Provider: Analy Charles Consult Reason/Comments: H&P and medical Do you want consulting provider notified?: Yes 09/21/23 16:31 Consult Physician Routine Consulting Provider: Milka Yoon Consult Reason/Comments: 30 weeks - admitted to [facility] for SI and symptoms of yuly Do you want consulting provider notified?: Already Contacted Primary care physician: Stated None - Discharge Diagnosis(es) (1) Adjustment disorder with mixed emotional features Current Visit: Yes Status: Acute Priority: Medium (2) Major depressive disorder Current Visit: Yes Status: Acute Priority: High (3) History of depression, currently Current Visit: Yes Status: Acute Priority: Medium (4) Alcohol use disorder Current Visit: Yes Status: Acute Priority: High (5) Polysubstance use disorder Current Visit: Yes Status: Acute Priority: Medium (6) Personality disorder, unspecified Current Visit: Yes Status: Acute Priority: High Hospital Course: Admission HPI: Admission note was completed by Dr Hoskins "This is a psychiatric assessment on this patient was a 38-year-old female with long history of depression Patient reports that she also has a history of depression She stated that she has a 5-year-old child from a previous relationship that is now living with his biological father She said that in between she had had an few years ago She says that she is currently here because of depression and that she said about 7 months She says that she is currently taking some Seroquel when necessary but now on her condition to get any worse She denies that she is suicidal or homicidal but states that she came in as a precautionary measure She said that she currently lives with her boyfriend who is supportive She denies any suicidal or homicidal ideations denied any auditory or visual hallucinations She admits that she however was feeling overwhelmed helpless and hopeless and was afraid that she might do something and came in for safety She is not sure if she wants to take any medications if it does had any effect on the unborn child" Hospital course: Upon admission to the unit patient was directable and agreeable to commence treatment and signed adult voluntary form. Patient got along well with other patients on the unit and followed unit protocol. Patient was compliant with the medications and denied any side effects throughout hospital course. Patient was started on Seroquel and increased to a dose of 100 mg nightly for mood stabilization/sleep, Zoloft 25 mg daily for mood/anxiety. Patient spoke of her stressors and engaged in therapy both group and individual. Patient was also seen by medical team for history and physical exam. Throughout the course of the hospitalization patient gradually improved with regards to mood, anxiety, suicidal thoughts, sleep and became more future oriented with improved insight and judgment. On the day of discharge patient denied any suicidal or homicidal ideations intent or plan denied any auditory or visual hallucinations. Patient endorsed wanting to live for her kids and her future. The patient denied any access to guns or weapons. Patient denied any paranoia and did not endorse any delusions. Patient does have a significant history of substance abuse and was counseled on abstaining from all substances including alcohol and marijuana. Patient was offered however declined inpatient substance-abuse rehab. Patient elected to do outpatient substance use treatment program through [facility]. Patient was also counseled on the medications and need for regular compliance and was encouraged to follow-up with their outpatient appointment for mental health and also for primary care. Prior to discharge a family meeting will be arranged by social sciences research scientist to answer any questions and ensure safety upon discharge. Patient will also follow-up with [employer] for Mental status exam: General Appearance: Patient appears to be tall, short, dyed hair, stated age is alert, pleasant, and cooperative. Patient is in no acute distress and has improved hygiene and grooming Behavior: Patient is calmly seated without any agitated behavior. Speech: Patient's speech is fluent and nonpressured. Mood/Affect: Patient reports their mood is "good", affect is congruent Suicidality/Homicidality: Patient denies having any suicidal or homicidal ideation intent or plan. Perceptions: Patient denies any auditory or visual hallucinations. Though content/process: There is no evidence of any delusional thought content and thought process is linear and goal-directed. More future oriented Memory and concentration: AOX3, grossly intact for the purposes of this session. Can spell "WORLD" backwards correctly. Judgment and insight: Chronically poor, however has improved with guarded prognosis Impression: Adjustment disorder with mixed emotional features Major depressive disorder personality disorder unspecified History of depression Alcohol use disorder Polysubstance use disorder Plan: -Continue with discharge today as patient has improved and stabilized psychiatrically and is not currently an imminent threat to herself and/or others. Patient will remain at chronically elevated risk for harm to self and/or others due to her impulsivity and substance abuse. -Continue medications: Seroquel 100 mg nightly for mood stabilization/insomnia, Zoloft 25 mg daily for mood/anxiety. -Patient was counseled on the need for medication compliance and appropriate follow-up at mental health and also primary care for medical issues. Patient verbalized understanding and agreed. -Social work to arrange for and conduct family meeting to ensure safety upon discharge and answer any questions/concerns. Social work also to arrange for patients follow up appointments with [facility] for psychiatric care along with follow up with primary care provider. -Patient counseled on abstaining from recreational drugs and marijuana and alcohol. Was informed/educated on the adverse effects on their physical and mental health. Patient verbally agreed and understood. Patient was offered substance abuse treatment however declined at this time. -Patient was instructed to return to the hospital or seek immediate medical care if their psychiatric or medical symptoms do worsen or reoccur. Allergies Allergy/AdvReac Type Severity Reaction Status Date / Time diphenhydramine AdvReac Unknown Verified 09/18/23 17:58 From Benadryl Laboratory Results WBC 10.4 k/uL (3.8-10.6) 09/18/23 15:08 RBC 3.45 m/uL (3.80-5.40) L 09/18/23 15:08 Hgb 9.5 gm/dL (11.4-16.0) L 09/18/23 15:08 Hct 29.4 % (34.0-46.0) L 09/18/23 15:08 MCV 85.0 fL (80.0-100.0) 09/18/23 15:08 MCH 27.6 pg (25.0-35.0) 09/18/23 15:08 MCHC 32.4 g/dL (31.0-37.0) 09/18/23 15:08 RDW 14.3 % (11.5-15.5) 09/18/23 15:08 Plt Count 370 k/uL (150-450) 09/18/23 15:08 MPV 8.0 09/18/23 15:08 Neutrophils % 71 % 09/18/23 15:08 Lymphocytes % 17 % 09/18/23 15:08 Monocytes % 5 % 09/18/23 15:08 Eosinophils % 5 % 09/18/23 15:08 Basophils % 1 % 09/18/23 15:08 Neutrophils # 7.4 k/uL (1.3-7.7) 09/18/23 15:08 Lymphocytes # 1.8 k/uL (1.0-4.8) 09/18/23 15:08 Monocytes # 0.5 k/uL (0-1.0) 09/18/23 15:08 Eosinophils # 0.5 k/uL (0-0.7) 09/18/23 15:08 Basophils # 0.1 k/uL (0-0.2) 09/18/23 15:08 Hypochromasia Slight 09/18/23 15:08 Sodium 135 mmol/L (137-145) L 09/18/23 15:08 Potassium 3.6 mmol/L (3.5-5.1) 09/18/23 15:08 Chloride 110 mmol/L (98-107) H 09/18/23 15:08 Carbon Dioxide 18 mmol/L (22-30) L 09/18/23 15:08 Anion Gap 7 mmol/L 09/18/23 15:08 BUN 6 mg/dL (7-17) L 09/18/23 15:08 Creatinine 0.40 mg/dL (0.52-1.04) L 09/18/23 15:08 Est GFR (CKD-EPI)AfAm >90 (>60 ml/min/1.73 sqM) 09/18/23 15:08 Est GFR (CKD-EPI)NonAf >90 (>60 ml/min/1.73 sqM) 09/18/23 15:08 Glucose 116 mg/dL (74-99) H 09/18/23 15:[address] Glu mg/dL 103 mg/dL 09/23/23 08:19 Hemoglobin A1c 5.2 % (<=6.0) 09/23/23 08:19 Calcium 8.2 mg/dL (8.4-10.2) L 09/18/23 15:08 Total Bilirubin 0.3 mg/dL (0.2-1.3) 09/18/23 15:08 AST 26 U/L (14-36) 09/18/23 15:08 ALT 17 U/L (4-34) 09/18/23 15:08 Alkaline Phosphatase 103 U/L (38-126) 09/18/23 15:08 Total Protein 5.3 g/dL (6.3-8.2) L 09/18/23 15:08 Albumin 2.5 g/dL (3.5-5.0) L 09/18/23 15:08 Triglycerides 268.00 mg/dL (0.00-149.00) H 09/23/23 08:19 Cholesterol 261.00 mg/dL (0.00-200.00) H 09/23/23 08:19 LDL Cholesterol, Calc 148.7 mg/dL (0.0-131.0) H 09/23/23 08:19 VLDL Cholesterol, Calc 53.60 mg/dL (5.00-40.00) H 09/23/23 08:19 HDL Cholesterol 58.70 mg/dL (40.00-60.00) 09/23/23 08:19 Cholesterol/HDL Ratio 4.45 Ratio 09/23/23 08:19 TSH 0.476 mIU/L (0.465-4.680) 09/23/23 08:19 Urine Color Colorless 09/18/23 15:57 Urine Appearance Cloudy (Clear) H 09/18/23 15:57 Urine pH 8.0 (5.0-8.0) 09/18/23 15:57 Ur Specific [place] 1.012 (1.001-1.035) 09/18/23 15:57 Urine Protein Negative (Negative) 09/18/23 15:57 Urine Glucose (UA) Negative (Negative) 09/18/23 15:57 Urine Ketones Negative (Negative) 09/18/23 15:57 Urine Blood Negative (Negative) 09/18/23 15:57 Urine Nitrite Negative (Negative) 09/18/23 15:57 Urine Bilirubin Negative (Negative) 09/18/23 15:57 Urine Urobilinogen <2.0 mg/dL (<2.0) 09/18/23 15:57 Ur Leukocyte Esterase Trace (Negative) H 09/18/23 15:57 Urine WBC 2 /hpf (0-5) 09/18/23 15:57 Ur Squamous Epith Cells 2 /hpf (0-4) 09/18/23 15:57 Amorphous Sediment Rare /hpf (None) H 09/18/23 15:57 Urine Mucus Rare /hpf (None) H 09/18/23 15:57 Urine HCG, Qual Detected (Not Detectd) 09/17/23 23:00 Urine Opiates Screen Not Detected (NotDetected) 09/17/23 23:00 Ur Oxycodone Screen Not Detected (NotDetected) 09/17/23 23:00 Urine Methadone Screen Not Detected (NotDetected) 09/17/23 23:00 Ur Barbiturates Screen Not Detected (NotDetected) 09/17/23 23:00 U Tricyclic Antidepress Not Detected (NotDetected) 09/17/23 23:00 Ur Phencyclidine Scrn Not Detected (NotDetected) 09/17/23 23:00 Ur Amphetamines Screen Detected (NotDetected) H 09/17/23 23:00 U Methamphetamines Scrn Not Detected (NotDetected) 09/17/23 23:00 U Benzodiazepines Scrn Not Detected (NotDetected) 09/17/23 23:00 Urine Cocaine Screen Not Detected (NotDetected) 09/17/23 23:00 U Marijuana (THC) Screen Not Detected (NotDetected) 09/17/23 23:00 Treponema pallidum Ab Nonreactive 09/23/23 08:19 Hep Bs Antigen Nonreactive 09/23/23 08:19 HCV RNA Qual (PCR) Not Detected (Not detected) 09/23/23 08:19 HIV-1 Antibody Non-Reactive (Non-Reactive) 09/23/23 08:19 HIV Ag/Ab Interpret 09/23/23 08:19 HIV p24 Antibody Non-Reactive (Non-Reactive) 09/23/23 08:19 HIV-2 Antibody Non-Reactive (Non-Reactive) 09/23/23 08:19 HIV P24 Antigen Non-Reactive (Non-Reactive) 09/23/23 08:19 Influenza Type A (PCR) Not Detected (Not Detectd) 09/18/23 01:46 Influenza Type B (PCR) Not Detected (Not Detectd) 09/18/23 01:46 RSV (PCR) Not Detected (Not Detectd) 09/18/23 01:46 Rubella IgG Antibody 119.00 IU/mL (0.00-9.00) H 09/23/23 08:19 SARS-CoV-2 (PCR) Not Detected (Not Detectd) 09/21/23 10:30 Blood Type A Positive 09/23/23 08:19 Blood Type Confirm A Positive 09/23/23 12:28 Blood Type Recheck No Previous Record 09/23/23 08:19 Bld Type Recheck Status CABO Indicated 09/23/23 08:19 Antibody Screen NEGATIVE 09/23/23 08:19 Spec Expiration Date 09/26/2023 - 231809/23/23 08:19 Vital Signs Temp 98.1 F 09/27/23 06:40 Pulse 89 09/27/23 06:40 Resp 14 09/27/23 06:40 BP 97/51 09/27/23 06:40 Pulse Ox 97 09/26/23 06:55 FiO2 Intake & Output 09/26/23 09/27/23 09/27/23 18:59 06:59 18:59 Weight 74.525 kg Patient Condition at Discharge: Stable Plan - Discharge Summary Discharge Rx Participant: No New Discharge Prescriptions: New Ferrous Sulfate [Iron (65 MG Elemental)] 325 mg PO W/LUNCH 30 Days #30 tab QUEtiapine [SEROquel] 100 mg PO HS 30 Days #30 tab Sertraline [Zoloft] 25 mg PO DAILY 30 Days #30 tab Docusate [Colace] 100 mg PO DAILY PRN cap PRN Reason: Constipation Famotidine [Pepcid] 20 mg PO BID 14 Days #28 tab Discontinued Cephalexin [Keflex] 500 mg PO Q6H Discharge Medication List Docusate [Colace] 100 mg PO DAILY PRN cap 09/27/23 [Rx] Famotidine [Pepcid] 20 mg PO BID 14 Days #28 tab 09/27/23 [Rx] Ferrous Sulfate [Iron (65 MG Elemental)] 325 mg PO W/LUNCH 30 Days #30 tab 09/27/23 [Rx] QUEtiapine [SEROquel] 100 mg PO HS 30 Days #30 tab 09/27/23 [Rx] Sertraline [Zoloft] 25 mg PO DAILY 30 Days #30 tab 09/27/23 [Rx] Follow up Appointment(s)/Referral(s): Milka Yoon MD [STAFF PHYSICIAN] - 1 Week None,Stated [Primary Care Provider] - 1-2 days Activity/Diet/Wound Care/Special Instructions: Avoid the use of street drugs and alcohol. Take all medications as prescribed. When you are in need of refills on your medications, please contact your medical provider and/or outpatient psychiatrist/provider to have this done. Please go to your scheduled outpatient appointment for aftercare treatment. If symptoms return or become worse, call the crisis line at and/or go to the nearest emergency room for evaluation. National Suicide Hotline 988. Discharge Disposition: HOME SELF-CARE
== END 2023-09-27 13:07 | disposition home or self-care (01) | DRG 566 ==
LOC: EC 22:21 → 3MHU 09-21 13:20
PROVIDERS: ADMIT Psychiatry & Neurology Psychiatry; ATTEND Psychiatry & Neurology Psychiatry
PROC: 3E0234Z Introduction of Serum, Toxoid and Vaccine into Muscle, Percutaneous Approach (ICD-10-PCS; principal; 2023-09-23)
DX: O99.343 Other mental disorders complicating pregnancy, third trimester (principal); F43.23 Adjustment disorder with mixed anxiety and depressed mood; R45.851 Suicidal ideations; O99.323 Drug use complicating pregnancy, third trimester; F32.9 Major depressive disorder, single episode, unspecified; F60.9 Personality disorder, unspecified; O99.313 Alcohol use complicating pregnancy, third trimester; F10.10 Alcohol abuse, uncomplicated; F12.10 Cannabis abuse, uncomplicated; O99.333 Smoking (tobacco) complicating pregnancy, third trimester; Z23 Encounter for immunization; Z11.52 Encounter for screening for COVID-19; F19.90 Other psychoactive substance use, unspecified, uncomplicated; G47.00 Insomnia, unspecified; Z3A.30 30 weeks gestation of pregnancy; E78.1 Pure hyperglyceridemia; F17.290 Nicotine dependence, other tobacco product, uncomplicated; Z71.6 Tobacco abuse counseling; Z91.410 Personal history of adult physical and sexual abuse; Z71.51 Drug abuse counseling and surveillance of drug abuser; Z71.41 Alcohol abuse counseling and surveillance of alcoholic; Z88.8 Allergy status to other drugs, medicaments and biological substances
CPT/HCPCS: 36415; 71045; 76805; 80053; 80061; 80306; 81001; 81025; 82075; 83036; 84443; 85025; 86762; 86780; 86850; 86900; 86901; 87340; 87390; 87521; 87635; 87636; 90715; 93005; 99285

== ENCOUNTER → 2023-10-04 | Outpatient (CLI) | payer OTHER ==
[2023-10-05 00:55] VITALS: BP 141/76; PULSE 103; RESP 18; TEMP 97.4
--- NOTE | 2023-10-29 10:55 | P.MSEPDOC ---
Presenting Problems - Arrival Data Date of Arrival on Unit: 10/05/23 Time of Arrival on Unit: 22:35 Mode of Transport: Wheelchair - Complaint OB-Reason for Admission/Chief Complaint: Possible Onset of Labor Comment: pt states started cramping during sexual intercourse today Medical History - Information : 5 Para: 1 Term: 1 : 0 Abortions: Spontaneous or Elective: 0 Number of Living Children: 1 - Gestational Age Gestational Age by FELIPE (wks/days): 32 Weeks and 1 Days - History Complications: No Care Comment: While admitted to the psych floor she states she had labs drawn and an US performed on abdomen. Patient has not called or saw Dr. Dr farfan in the office at all since discharge. Patient smells of alcohol and admits to drinking while and drinking today. SO Samuel Perkins is driving and pushing patient in wheelchair patient is ambulatory and ambulated to restroom for RN. Review of Systems - Review of Systems Constitutional: No problems Breast: No problems ENT: No problems Cardiovascular: No problems Respiratory: No problems Gastrointestinal: No problems Genitourinary: No problems Musculoskeletal: No problems Neurological: No problems Skin: No problems Vital Signs - Temperature Temperature: 97.4 F Temperature Source: Temporal Artery Scan - Pulse Pulse Oximetery Pulse Rate: 103 Pulse Assessment Method: Pulse Oximetry - Respirations Respiratory Rate: 18 Oxygen Delivery Method: Room Air O2 Sat by Pulse Oximetry: 98 - Blood Pressure Right Arm Blood Pressure: 141/76 Blood Pressure Mean: 97 Blood Pressure Source: Automatic Cuff Medical Screen Scoring - Assessment - Baby A Baseline FHR: 140 Heart Rate - NICHD Category: Category I (Normal) Physician Notification - Physician Notified Physician Notified Date: 10/04/23 Physician Notified Time: 23:15 Physician: Charles Jacob New Order Received: Yes - Notification Comment Comment: RN spoke with via telephone and he is aware of patient history, FHR cat1, no contractions present, no vaginal bleeding present, Dr. Jacob aware of nausea and vomiting on and off since 10/02/2023. Dr. Jacob aware of no care only on [facility] unit and alcohol use. No orders given to RN by Dr. Jacob other than to discharge patient. Dr. Lensmeyer is discharging patient. Maternal Triage Index - Urgent/Priority 2 Urgent Priority 2: Yes Provider Notified: Charles Jacob Provider Notified Time: 23:15 Criteria Met for Priority 2: Patient arrived in triage with complaints of bonnie,cramping and bleeding after sexual intercourse.. Disposition - Disposition OB Disposition: Discharge to home Discharge Date: 10/05/23 Discharge Time: 23:23 I agree with the RN Medical Screening Exam: Yes Physician's MSE Comment: I have neither seen nor examined the patient. Case reviewed; plan agreed upon as documented in EMR&OBIX.: Yes Diagnosis: RELATED CONDITIONS, UNSPECIFIED, THIRD TRIMESTER
== END ==
LOC: FBPOP 22:35
PROVIDERS: ATTEND Obstetrics & Gynecology
DX: O47.03 False labor before 37 completed weeks of gestation, third trimester (principal); Z3A.32 32 weeks gestation of pregnancy; Z88.8 Allergy status to other drugs, medicaments and biological substances
CPT/HCPCS: 59025; G0463; 99213

== ENCOUNTER 2023-10-11 13:52 | Outpatient (CLI) | payer OTHER ==
[2023-10-11 15:15] LABS: Appearance,Urine Cloudy (Clear); Bilirubin,Urine Negative (Negative); Blood,Urine Negative (Negative); Color,Urine Colorless; Glucose,Urine (UA) Negative (Negative); Ketones,Urine Negative (Negative); Leukocyte Esterase,Urine Negative (Negative); Nitrite,Urine Negative (Negative); PH, Urine 8.5 (5.0-8.0); Protein,Urine Trace (Negative); RBC,Urine <1 /hpf (0-5); Specific Gravity,Urine 1.012 (1.001-1.035); Squamous Epithelial Cell,Urine 1 /hpf (0-4); Urobilinogen,Urine <2.0 mg/dL (<2.0); WBC,Urine 1 /hpf (0-5)
[2023-10-11 16:21] VITALS: BP 122/65; PULSE 87; RESP 16; TEMP 96.7
--- NOTE | 2023-11-30 08:17 | P.MSEPDOC ---
Presenting Problems - Arrival Data Date of Arrival on Unit: 10/11/23 Time of Arrival on Unit: 13:52 Mode of Transport: Wheelchair - Complaint OB-Reason for Admission/Chief Complaint: Possible Onset of Labor Medical History - Information : 4 Para: 1 Term: 0 : 1 Abortions: Spontaneous or Elective: 2 Number of Living Children: 1 - Gestational Age Gestational Age by FELIPE (wks/days): 34 Weeks and 2 Days - History Complications: No Care, Hx. Substance Abuse Comment: in [facility] for alcohol addiction Review of Systems - Review of Systems Constitutional: No problems Breast: No problems ENT: No problems Cardiovascular: No problems Respiratory: No problems Gastrointestinal: No problems Genitourinary: No problems Musculoskeletal: No problems Neurological: No problems Skin: No problems Vital Signs - Temperature Temperature: 96.7 F Temperature Source: Temporal Artery Scan - Pulse Right Sitting Pulse Rate: 87 Pulse Assessment Method: Automatic Cuff - Respirations Respiratory Rate: 16 Oxygen Delivery Method: Room Air O2 Sat by Pulse Oximetry: 100 - Blood Pressure Right Arm Blood Pressure: 122/65 Blood Pressure Mean: 84 Blood Pressure Source: Automatic Cuff Medical Screen Scoring - Cervical Exam Dilation (cm): 1 Membranes: Intact - Assessment - Baby A Baseline FHR: 125 Heart Rate - NICHD Category: Category I (Normal) NST: Reactive Physician Notification - Physician Notified Physician Notified Date: 10/11/23 Physician Notified Time: 15:38 Physician: Neisha Jurado Order Received: Yes (d/c) Maternal Triage Index - Non-Urgent/Priority 4 Non-Urgent Priority 4: Yes Criteria Met for Priority 4: no contractions, reactive nst, vag exam 1cm/thick Disposition - Disposition OB Disposition: Discharge to home Discharge Date: 10/11/23 Discharge Time: 15:47 I agree with the RN Medical Screening Exam: Yes Case reviewed; plan agreed upon as documented in EMR&OBIX.: Yes Diagnosis: FALSE LABOR BEFORE 37 COMPLETED WEEKS OF GEST, THIRD TRI
== END 2023-10-11 15:47 | disposition home or self-care (01) ==
LOC: FBPOP 13:52
PROVIDERS: ATTEND Obstetrics & Gynecology
DX: O47.03 False labor before 37 completed weeks of gestation, third trimester (principal); Z3A.34 34 weeks gestation of pregnancy; Z88.8 Allergy status to other drugs, medicaments and biological substances
CPT/HCPCS: 59025; 81001; G0463; 99213

== ENCOUNTER 2023-10-26 12:01 | Outpatient (CLI) | payer OTHER ==
[2023-10-26 13:30] LABS: Amphetamine Screen,Urine Not Detected (NotDetected); Barbiturate Screen,Urine Not Detected (NotDetected); Benzodiazepines Screen,Urine Not Detected (NotDetected); Cocaine Screen,Urine Not Detected (NotDetected); Methadone Screen, Urine Not Detected (NotDetected); Opiate Screen,Urine Not Detected (NotDetected); Oxycodone Screen, Urine Not Detected (NotDetected); Phencyclidine Screen,Urine Not Detected (NotDetected); Tricyclic Antidepressant,Urine Not Detected (NotDetected); Urn Cannabinoid Scrn Not Detected (NotDetected)
--- NOTE | 2023-10-26 13:40 | US ---
EXAMINATION TYPE: US OB limited DATE OF EXAM: 10/26/2023 COMPARISON: US 09/21/2023 CLINICAL INDICATION: Female, 38 years old with history of DE level only please.; Hx stillborn. EXAM PERFORMED: Transabdominal (TA) GESTATIONAL AGE / DATING Physician Established: (35 weeks/1 day) EDC: 11/29/2023 No growth performed on today?s study per ordering physician SURVEY DE: 15.8 cm Ultrasound evidence of premature rupture of membranes? No HEART RATE: 140 bpm RHYTHM: Normal Some internal echoes visualized within amniotic fluid. IMPRESSION: Limited exam for DE measurement. 1. The DE measures measures 15.8 cm. Nonspecific finding of some internal echoes within the amniotic fluid.
[2023-10-26 13:44] LABS: Amorphous Sediment,Urine Few /hpf; Appearance,Urine Turbid (Clear); Bilirubin,Urine Negative (Negative); Blood,Urine Negative (Negative); Color,Urine Light Yellow; Glucose,Urine (UA) Negative (Negative); Ketones,Urine Negative (Negative); Leukocyte Esterase,Urine Negative (Negative); Nitrite,Urine Negative (Negative); PH, Urine 8.5 (5.0-8.0); Protein,Urine Trace (Negative); RBC,Urine 2 /hpf (0-5); Specific Gravity,Urine 1.015 (1.001-1.035); Urobilinogen,Urine <2.0 mg/dL (<2.0); WBC,Urine 1 /hpf (0-5)
[2023-10-26 14:41] LABS: Anisocytosis Slight; Basophils # (A) 0.1 k/uL (0-0.2); Basophils % (A) 1 %; Eosinophils # (A) 0.3 k/uL (0-0.7); Eosinophils % (A) 3 %; HCT 31.3 % (34.0-46.0); HGB 10.1 gm/dL (11.4-16.0); Hypochromasia Marked; Lymphocytes # (A) 1.7 k/uL (1.0-4.8); Lymphocytes % (A) 16 %; MCH 26.6 pg (25.0-35.0); MCHC 32.1 g/dL (31.0-37.0); Mean Platelet Volume 8.7; Monocytes # (A) 0.5 k/uL (0-1.0); Monocytes % (A) 4 %; Neutrophils % (A) 74 %; Platelet Count 312 k/uL (150-450); Poikilocytosis Slight; RBC 3.78 m/uL (3.80-5.40); RDW 16.6 % (11.5-15.5); WBC 10.8 k/uL (3.8-10.6)
[2023-10-26 14:55] LABS: ALT 15 U/L (4-34); AST 21 U/L (14-36); African American GFR (CKD) >90 (>60 ml/min/1.73 sqM); Albumin 2.9 g/dL (3.5-5.0); Alkaline Phosphatase 144 U/L (38-126); Amylase 77 U/L (30-110); Anion Gap 4 mmol/L; Blood Urea Nitrogen 7 mg/dL (7-17); Calcium 8.8 mg/dL (8.4-10.2); Carbon Dioxide 22 mmol/L (22-30); Chloride 108 mmol/L (98-107); Glucose 105 mg/dL (74-99); Lipase 100 U/L (23-300); Non-African American GFR(CKD) >90 (>60 ml/min/1.73 sqM); Potassium 4.2 mmol/L (3.5-5.1); Sodium 134 mmol/L (137-145); Total Bilirubin 0.2 mg/dL (0.2-1.3)
[2023-10-26 16:04] VITALS: BP 108/62; PULSE 88; RESP 18; TEMP 97.8
[2023-10-26 18:44] LABS: Hepatitis B Surface Antigen Nonreactive (Nonreactive)
[2023-10-26 20:17] LABS: HIV 2 AB Non-Reactive (Non-Reactive); HIV AB P24 Non-Reactive (Non-Reactive); HIV P24 AG Non-Reactive (Non-Reactive)
[2023-10-27 13:59] LABS: N. gonorrhoeae,PCR Negative (Negative)
[2023-10-27 14:05] LABS: C. trachomatis,PCR Negative (Negative)
--- NOTE | 2023-10-29 11:02 | P.MSEPDOC ---
Presenting Problems - Arrival Data Date of Arrival on Unit: 10/26/23 Time of Arrival on Unit: 12:01 Mode of Transport: Portable - Complaint OB-Reason for Admission/Chief Complaint: Pain Comment: upper abd and upper back pain for last 2-3days. Medical History - Information : 4 Para: 1 Term: 0 : 1 Abortions: Spontaneous or Elective: 2 Number of Living Children: 1 - Gestational Age Gestational Age by FELIPE (wks/days): 35 Weeks and 1 Days Review of Systems - Review of Systems Constitutional: No problems Breast: No problems ENT: No problems Cardiovascular: No problems Respiratory: No problems Gastrointestinal: No problems Genitourinary: No problems Musculoskeletal: No problems Neurological: No problems Skin: No problems Vital Signs - Temperature Temperature: 97.8 F Temperature Source: Temporal Artery Scan - Pulse Pulse Oximetery Pulse Rate: 88 Pulse Assessment Method: Pulse Oximetry - Respirations Respiratory Rate: 18 Oxygen Delivery Method: Room Air O2 Sat by Pulse Oximetry: 100 - Blood Pressure Right Arm Blood Pressure: 108/62 Blood Pressure Mean: 77 Blood Pressure Source: Automatic Cuff Medical Screen Scoring - Assessment - Baby A Baseline FHR: 135 Heart Rate - NICHD Category: Category I (Normal) NST: Reactive Physician Notification - Physician Notified Physician Notified Date: 10/26/23 Physician Notified Time: 12:45 Physician: Charles Juan Order Received: Yes (DE and lab work up.) - Notification Comment Comment: Dr. Juan given order results at 1542. Orders given for discharge home with follow up instrucitions. Maternal Triage Index - Maternal Triage Index Presenting for scheduled procedure w/no complaint: No - Stat/Priority 1 Stat Priority 1: No - Urgent/Priority 2 Urgent Priority 2: No - Prompt/Priority 3 Prompt Priority 3: No - Non-Urgent/Priority 4 Non-Urgent Priority 4: Yes Criteria Met for Priority 4: upper abd and upper back pain. Disposition - Disposition OB Disposition: Triage, Discharge to home Discharge Date: 10/26/23 Discharge Time: 15:45 I agree with the RN Medical Screening Exam: Yes Physician's MSE Comment: I have neither seen nor examined the patient. Case reviewed; plan agreed upon as documented in EMR&OBIX.: Yes Diagnosis: RELATED CONDITIONS, UNSPECIFIED, THIRD TRIMESTER
== END 2023-10-26 15:45 | disposition home or self-care (01) ==
LOC: FBPOP 12:01
PROVIDERS: ATTEND Obstetrics & Gynecology
DX: O26.893 Other specified pregnancy related conditions, third trimester (principal); R10.10 Upper abdominal pain, unspecified; M54.6 Pain in thoracic spine; Z3A.35 35 weeks gestation of pregnancy; Z88.8 Allergy status to other drugs, medicaments and biological substances
CPT/HCPCS: 59025; 86900; 86901; 86762; 80053; 82150; 83690; 85025; 86850; 87340; 81001; 87491; 87591; 86780; 80306; 87390; 76815; G0463; 99213

== ENCOUNTER 2023-11-16 12:39 | Inpatient (IN) | payer OTHER ==
--- NOTE | 2023-11-16 15:34 | US ---
EXAMINATION TYPE: US OB >= 14 wk fetus DATE OF EXAM: 11/16/2023 COMPARISON: 10/26/2023 CLINICAL INDICATION: Female, 38 years old with history of growth; No care, contrations x 1 w twenty-nine palms. TECHNIQUE: Transabdominal (TA) GESTATIONAL AGE / DATING Physician Established: (38 weeks/1 days) EDC: 11/29/2023 Dates by LMP: ( weeks/ days) EDC: Dates by First Scan: ( weeks/ days) EDC: Dates by Current Scan: (36 weeks/4 days) EDC: 12/10/2023 Beta HCG (if available): Not available at this time SURVEY IUP: Single PLACENTA: Anterior PREVIA: No Previa DE: 6.6 cm Normal CERVICAL LENGTH (transabdominal: norm > 3.0cm): 2.2 cm BIOMETRY PRESENTATION: Vertex LIE: Longitudinal BPD: 8.94 cm 36 weeks / 2 days HC: 32.57 cm 37 weeks / 0 days AC: 32.30 cm 36 weeks / 2 days FL: 7.14 cm 36 weeks / 5 days ESTIMATED WEIGHT IN GRAMS: 2923 grams ESTIMATED WEIGHT IN LBS/OZ: 6 lbs. 7 oz. WEIGHT PERCENTAGE BASED ON ESTABLISHED DATES: 20% HC/AC: 1.01 Normal FL/AC: 22% Normal HEART RATE: 134 bpm RHYTHM: Normal MATERNAL WALL MEASUREMENT: 1.5 cm from skin to anterior uterine wall (if exam limited due to body hab itus). IMPRESSION: Single live intrauterine gestation ultrasound age 36 weeks 4 days.
[2023-11-16] MEDS: LACTATED RINGERS 1,000 ML IV SCH (16:15)
[2023-11-16] MEDS ORDERED: CALCIUM CARBONATE 500 MG CHEWABLE PO PRN (17:28)
[2023-11-16] MEDS ORDERED: ONDANSETRON 4 MG TAB PO PRN (17:28)
[2023-11-16] MEDS: FAMOTIDINE 20 MG TAB PO SCH (22:34)
[2023-11-17 07:39] VITALS: BMI 25.1
[2023-11-17] MEDS: DESVENLAFAXINE SUCCINATE 50 MG TAB.ER.24H PO SCH (08:08)
[2023-11-17] MEDS: PRENATAL VIT-IRON-FOLIC ACID 1 EACH TABLET PO SCH (08:08)
--- NOTE | 2023-11-17 08:15 | US ---
EXAMINATION TYPE: US OB limited DATE OF EXAM: 11/17/2023 COMPARISON: 11/16/2023. CLINICAL INDICATION: Female, 38 years old with history of Low DE; DE 6.5 yesterday, 38 weeks pregna nt EXAM PERFORMED: OBTA GESTATIONAL AGE / DATING No growth performed on today?s study per ordering physician SURVEY DE: 8.5 cm Normal Ultrasound evidence of premature rupture of membranes? no HEART RATE: 140 bpm RHYTHM: Normal IMPRESSION: Single live intrauterine gestation. DE: 8.5 cm Normal
[2023-11-17] MEDS ORDERED: METHYLERGONOVINE 0.2 MG/ML 1 ML AMP IM PRN (11:31)
[2023-11-17] MEDS ORDERED: TERBUTALINE 1 MG/ML VIAL SQ PRN (11:31)
[2023-11-17] MEDS ORDERED: OXYTOCIN 10 UNIT/ML 1 ML VIAL IM PRN (11:31)
[2023-11-17] MEDS ORDERED: miSOPROStoL 200 MCG TAB PO PRN (11:31)
[2023-11-17] MEDS ORDERED: CARBOPROST TROMETHAMINE 250 MCG/ML 1 ML AMP IM PRN (11:31)
[2023-11-17] MEDS ORDERED: TRANEXAMIC 1,000 MG/100ML-NACL 1,000 MG in EMPTY BAG 1 BAG IV PRN (11:31)
[2023-11-17] MEDS: LACTATED RINGERS 1,000 ML IV SCH (11:44)
[2023-11-17] MEDS: OXYTOCIN 30 UNITS/500 ML NS 30 UNIT in SALINE 1 500ML.BAG IV SCH (11:44)
[2023-11-17] MEDS ORDERED: OXYTOCIN 30 UNITS/500 ML NS 30 UNIT in SALINE 1 500ML.BAG IV SCH (11:45)
--- NOTE | 2023-11-17 12:48 | P.HPOB ---
History of Present Illness H&P Date: 11/17/23 (late entry) Chief Complaint: IUP 39 weeks, no pnc low DE, ETOH abuse This is a 38 yo , (1 EAB, 1 missed ab) h/o 26 week abruption in addition. She has had no care this and states she was unable to find a provider. she was admitted to the hospital (psychiatric unit for ETOH abuse) this and did have labs done. She has questionable dates for this , and states around 17 weeks she was seen at a care center, then about "5 different" hospitals. she was told an EDC anywhere form 11/19- 11/28. Her medical history is complicated by a diagnosis of MS, she states she used to see a doctor in [place] but has not seen them in quite some time. She is not on any medications currently for MS. She does note good movement, denies contractions, denies vaginal bleeding. Ultrasound done in triage yesterday revealing amniotic fluid index of 6, heart tones noted to be category 1. Patient was admitted for continued observation and repeat DE. Records were obtained from [facility]. [employer] history 1 26-29 week abruption, 2 missed Ab 3 elective Ab 4 current Review of Systems Constitutional: Denies chills, Denies fatigue, Denies fever Ears, nose, mouth and throat: Denies headache Cardiovascular: Denies leg edema Respiratory: Denies dyspnea Gastrointestinal: Denies constipation, Denies diarrhea, Denies nausea, Denies vomiting Genitourinary: Reports Past Medical History Past Medical History: No Reported History Additional Past Medical History / Comment(s): pt states she has MS, migraines, and PPD History of Any Multi-Drug Resistant Organisms: None Reported Past Surgical History: No Surgical Hx Reported Additional Past Surgical History / Comment(s): R shoulder 2005 multiple dislocation repair Past Anesthesia/Blood Transfusion Reactions: No Reported Reaction Past Psychological History: Depression, PTSD Smoking Status: Current every day smoker, Vaper Past Alcohol Use History: Occasional Additional Past Alcohol Use History / Comment(s): last drink about 3 weeks ago Past Drug Use History: None Reported Additional Drug Use History / Comment(s): Previous admission (11/15/23): pt denies substance use. pt BAT 0.122 upon arrival to ER. UDS positive for amphetamines. Medications and Allergies Home Medications Medication Instructions Recorded Confirmed Type Famotidine [Pepcid] 20 mg PO BID 14 Days #28 tab 09/27/23 11/16/23 Rx Desvenlafaxine [Desvenlafaxine ER] 50 mg PO DAILY 10/11/23 11/16/23 History OLANZapine [ZyPREXA] 2.5 mg PO DAILY 10/11/23 11/16/23 History ondansetron HCL [Zofran] 8 mg PO TID 10/11/23 11/16/23 History Allergies Allergy/AdvReac Type Severity Reaction Status Date / Time diphenhydramine AdvReac Unknown Verified 11/16/23 12:46 [From Benadryl] Exam Osteopathic Statement: *. No significant issues noted on an osteopathic structural exam other than those noted in the History and Physical/Consult. Vital Signs Temp Pulse Resp BP Pulse Ox 11/16/23 12:40 97.1 F L 77 16 117/70 97 Intake and Output 11/16/23 11/17/23 11/17/23 22:59 06:59 14:59 Other: # Voids 3 2 Weight 81.647 kg 81.647 kg Targeted physical exam is performed this date, general this is a female in no acute distress, breathing is nonlabored, abdomen is gravid, heart tones are noted to be category 1, on cervical exam she is 4-5/70/-1 station vertex presentation. Assessment and Plan (1) Term Current Visit: Yes Status: Acute Code(s): Z34.90 - ENCNTR FOR SUPRVSN OF NORMAL , UNSP, UNSP TRIMESTER SNOMED Code(s): 30132998 (2) No care in current Current Visit: No Status: Acute Code(s): O09.30 - SUPRVSN OF PREG W INSUFFICIENT ANTENAT CARE, UNSP TRIMESTER SNOMED Code(s): 318608332 (3) Alcohol use disorder Current Visit: No Status: Acute Priority: High Code(s): F10.90 - ALCOHOL USE, UNSPECIFIED, UNCOMPLICATED SNOMED Code(s): 5890056 (4) Polysubstance use disorder Current Visit: No Status: Acute Priority: Medium Code(s): F19.90 - OTHER PSYCHOACTIVE SUBSTANCE USE, UNSPECIFIED, UNCOMPLICATED SNOMED Code(s): 17393892 Plan: 38-year-old 4 para 1-0-2-1 at 38+ weeks, unknown sure estimated date of confinement given multiple ultrasounds and no care during this . Patient was noted to be 3 cm in triage yesterday, 4-5 today. Ultrasound revealing amniotic fluid index, low at 6. Patient is admitted for delivery. Augmentation of labor is completed with Pitocin. Options for pain control throughout labor are discussed including epidural. Patient will consider. Amniotomy is performed and clear fluid was obtained.
[2023-11-17 13:05] LABS: Anisocytosis Slight; Basophils # (A) 0.1 k/uL (0-0.2); Basophils % (A) 1 %; Eosinophils # (A) 0.4 k/uL (0-0.7); Eosinophils % (A) 5 %; HCT 31.9 % (34.0-46.0); Hypochromasia Moderate; Lymphocytes # (A) 1.6 k/uL (1.0-4.8); Lymphocytes % (A) 19 %; MCHC 31.3 g/dL (31.0-37.0); MCV 79.9 fL (80.0-100.0); Microcytosis Slight; Monocytes # (A) 0.5 k/uL (0-1.0); Monocytes % (A) 6 %; Neutrophils # (A) 5.7 k/uL (1.3-7.7); Neutrophils % (A) 68 %; Platelet Count 280 k/uL (150-450); RBC 3.99 m/uL (3.80-5.40); RDW 17.7 % (11.5-15.5); WBC 8.5 k/uL (3.8-10.6)
[2023-11-17] MEDS ORDERED: SODIUM CHLORIDE 0.9% 250 ML BAG ONE (14:35)
[2023-11-17] MEDS ORDERED: fentaNYL (PF) 50 MCG/ML 5 ML AMP ONE (14:35)
[2023-11-17] MEDS ORDERED: ROPIVACAINE 5 MG/ML 30 ML VIAL ONE (14:35)
[2023-11-17] MEDS: ONDANSETRON 4 MG/2 ML VIAL IVP PRN (15:16)
[2023-11-17] MEDS ORDERED: AMPICILLIN 1,000 MG in SODIUM CHLORIDE 0.9% 50 ML IVPB SCH (15:45)
[2023-11-17] MEDS ORDERED: NON FORMULARY DRUG (Ondansetron Hcl [Zofran] 8 MG Tablet) PO SCH (16:00)
[2023-11-17] MEDS: AMPICILLIN 2,000 MG in SODIUM CHLORIDE 0.9% 100 ML IVPB STA (16:14)
[2023-11-17] MEDS: LIDOCAINE 0.5% (PF) 5 MG/ML (50 ML SDV) SQ PRN (17:45)
[2023-11-17] MEDS ORDERED: diphenhydrAMINE 50 MG/ML 1 ML VIAL IVP PRN ×2 (17:56)
[2023-11-17] MEDS ORDERED: diphenhydrAMINE 50 MG CAP PO PRN (17:56)
[2023-11-17] MEDS ORDERED: ACETAMINOPHEN ORAL SUSP 160 MG/5 ML CUP PO PRN (17:56)
[2023-11-17] MEDS ORDERED: BENZOCAINE/MENTHOL SPRAY 1 GM/SPRAY AEROSOL TOPICAL PRN (17:56)
[2023-11-17] MEDS ORDERED: LANOLIN CREAM 1 GM TUBE TOPICAL PRN (17:56)
[2023-11-17] MEDS ORDERED: ZOLPIDEM 5 MG TAB PO PRN (17:56)
[2023-11-17] MEDS ORDERED: HYDROCORTISONE 2.5% RECTAL CREAM 30 GM TUBE RECTAL PRN (17:56)
[2023-11-17] MEDS ORDERED: SIMETHICONE 80 MG CHEWABLE PO PRN (17:56)
--- NOTE | 2023-11-17 18:01 | P.PROBDLV ---
Vaginal Delivery Note - . Vaginal Delivery Note: 38-year-old [id number] that presented to labor and delivery last evening with complaints of no care and just wanted to get checked out. Patient stated she had a rash on her abdomen in addition. Patient underwent ultrasound evaluation of the revealing a low amniotic fluid index of 6. Patient had no care throughout this . Patient states she was unable to find a provider. Patient was monitored overnight category 1 heart tones were noted repeat DE was noted to be 8. Upon further review of records we could obtain patient was deemed to be 38 to 39 weeks and given low amniotic fluid index was admitted for labor and delivery. Patient in addition made cervical change through the night 3 cm on admission 5-6 this morning. Patient was then augmented with Pitocin. Patient underwent amniotomy and clear fluid was obtained. Patient progressed through labor eventually becoming uncomfortable and requesting epidural placement. Epidural was placed without difficulty by the anesthesia department. Patient progressed to complete began pushing and had a normal spontaneous vaginal delivery of a viable female at 1740, weight of 6 pounds 13.2 ounces, Apgars of 8 and 9 at 1 and 5 minutes respectively. The umbilical cord was doubly clamped and cut the placenta was delivered spontaneously intact with a three-vessel cord being noted. The uterus was noted to be firm below the umbilicus. On inspection of the patient's vaginal vault a clitoral periurethral laceration was appreciated. This was injected with lidocaine and repaired in usual fashion with 4-0 chromic. Catheter was placed during closure to ensure urethral location throughout. Hemostasis was noted after closure. All counts were noted be correct x 2 at the end of the delivery. Patient and infant tolerated delivery well and are resting comfortably. Estimated blood loss 100 cc
--- NOTE | 2023-11-17 18:32 | P.MSEPDOC ---
Presenting Problems - Arrival Data Date of Arrival on Unit: 11/16/23 Time of Arrival on Unit: 12:39 Mode of Transport: Portable - Complaint OB-Reason for Admission/Chief Complaint: Other Comment: rash Medical History - Information : 4 Para: 1 Term: 0 : 1 Abortions: Spontaneous or Elective: 2 Number of Living Children: 1 - Gestational Age Gestational Age by FELIPE (wks/days): 39 Weeks and 3 Days - History Complications: No Care Review of Systems - Review of Systems Constitutional: No problems Breast: No problems ENT: No problems Cardiovascular: No problems Respiratory: No problems Gastrointestinal: No problems Genitourinary: No problems Musculoskeletal: No problems Neurological: No problems Skin: No problems Vital Signs - Temperature Temperature: 97.1 F Temperature Source: Temporal Artery Scan - Pulse Right Pulse Rate: 77 Pulse Assessment Method: Automatic Cuff - Respirations Respiratory Rate: 16 Oxygen Delivery Method: Room Air O2 Sat by Pulse Oximetry: 97 - Blood Pressure Right Arm Blood Pressure: 117/70 Blood Pressure Mean: 85 Blood Pressure Source: Automatic Cuff Medical Screen Scoring - Cervical Exam Dilation (cm): 3 Effacement (%): 50 Station: -1 Membranes: Intact - Assessment - Baby A Baseline FHR: 120 Heart Rate - NICHD Category: Category I (Normal) NST: Reactive Physician Notification - Physician Notified Physician Notified Date: 11/16/23 Physician Notified Time: 13:15 Physician: Cecilia Duenas New Order Received: Yes (schedule tomorrow after we get records from other facility) Maternal Triage Index - Maternal Triage Index Presenting for scheduled procedure w/no complaint: No - Stat/Priority 1 Stat Priority 1: No - Urgent/Priority 2 Urgent Priority 2: No - Prompt/Priority 3 Prompt Priority 3: No - Non-Urgent/Priority 4 Non-Urgent Priority 4: Yes Criteria Met for Priority 4: rash Disposition - Disposition OB Disposition: Discharge to home Discharge Date: 11/16/23 I agree with the RN Medical Screening Exam: Yes Case reviewed; plan agreed upon as documented in EMR&OBIX.: Yes Diagnosis: ENCOUNTER FOR FULL-TERM UNCOMPLICATED DELIVERY
[2023-11-17 20:02] LABS: Urine Alcohol Negative (Negative); Urine Barbiturate Negative (Negative); Urine Cocaine Negative (Negative); Urine Methadone Negative (Negative); Urine Opiates Negative (Negative); Urine Phencyclidine Negative (Negative)
[2023-11-17] MEDS: SENNOSIDES-DOCUSATE SODIUM 1 EACH TAB PO SCH (20:15)
[2023-11-17] MEDS: IBUPROFEN 600 MG TAB PO SCH (20:15)
[2023-11-17] MEDS: HYDROCORTISONE 1% CREAM 30 GM TUBE TOPICAL PRN (20:15)
[2023-11-17] MEDS ORDERED: FAMOTIDINE 20 MG TAB PO SCH (21:00)
[2023-11-17] MEDS: ACETAMINOPHEN TAB 325 MG TAB PO PRN (23:35)
[2023-11-18 06:47] LABS: Anisocytosis Slight; Basophils # (A) 0.1 k/uL (0-0.2); Basophils % (A) 0 %; Eosinophils # (A) 0.3 k/uL (0-0.7); Eosinophils % (A) 2 %; HCT 28.9 % (34.0-46.0); HGB 8.9 gm/dL (11.4-16.0); Hypochromasia Marked; Lymphocytes # (A) 2.1 k/uL (1.0-4.8); Lymphocytes % (A) 18 %; MCHC 30.8 g/dL (31.0-37.0); MCV 81.2 fL (80.0-100.0); Mean Platelet Volume 9.3; Monocytes # (A) 0.6 k/uL (0-1.0); Monocytes % (A) 5 %; Neutrophils # (A) 8.3 k/uL (1.3-7.7); Neutrophils % (A) 72 %; Platelet Count 232 k/uL (150-450); Poikilocytosis Slight; RBC 3.56 m/uL (3.80-5.40); RDW 17.3 % (11.5-15.5); WBC 11.6 k/uL (3.8-10.6)
[2023-11-18] MEDS ORDERED: NON FORMULARY DRUG (Desvenlafaxine [Desvenlafaxine Er] 50 MG Tab.Er.24h) PO SCH (09:00)
[2023-11-18] MEDS: OLANZapine 2.5 MG TAB PO SCH (09:06)
--- NOTE | 2023-11-18 11:05 | P.PNOBGVD ---
Subjective - Subjective Principal diagnosis: day #1 Interval history: Patient is overall doing well. She is ambulating and voiding without difficulty. She is tolerating a regular diet. She states her pain is well- controlled. Patient reports: Reports appetite normal, Reports voiding normally, Reports pain well controlled, Reports ambulating normally [place]: doing well Objective - Latest Vital Signs Latest vital signs: Vital Signs Temp Pulse Resp BP Pulse Ox 11/18/23 07:55 97.8 F 78 16 120/75 11/18/23 03:49 97.9 F 72 16 115/70 98 11/17/23 23:56 97.8 F 76 16 112/63 99 11/17/23 19:50 74 16 110/71 11/17/23 19:35 79 16 114/73 11/17/23 19:20 81 16 121/77 11/17/23 19:05 97.2 F L 63 16 107/69 11/17/23 18:50 72 16 110/80 11/17/23 18:35 76 16 112/65 11/17/23 18:32 97.1 F L 77 16 117/70 97 11/17/23 18:20 97.2 F L 75 16 110/69 11/17/23 18:05 75 16 121/69 11/17/23 17:50 76 16 116/63 Intake and Output 11/17/23 11/18/23 11/18/23 22:59 06:59 14:59 Intake Total 12 180 Output Total 221 Balance -209 180 Intake: Intake, IV Titration 12 Amount Oxytocin 30 Units/500 ml 12 Ns 30 unit In Saline 1 500ml.bag @ Per Protocol IV .Q0M [facility] Rx#:[id number] Oral 180 Output: Output, Quantitative 221 Blood Loss Other: # Voids 1 2 3 - Exam Extremities: Present: normal, edema Abdomen: Present: normal appearance, soft Uterus: Present: normal, firm - Labs Labs: Abnormal Lab Results - Last 24 Hours (Table) 11/17/23 11/18/23 Range/Units 12:51 06:25 WBC 11.6 H (3.8-10.6) k/uL RBC 3.56 L (3.80-5.40) m/uL Hgb 10.0 L 8.9 L (11.4-16.0) gm/dL Hct 31.9 L 28.9 L (34.0-46.0) % MCV 79.9 L (80.0-100.0) fL MCHC 30.8 L (31.0-37.0) g/dL RDW 17.7 H 17.3 H (11.5-15.5) % Neutrophils # 8.3 H (1.3-7.7) k/uL Assessment and Plan (1) Term Current Visit: Yes Status: Acute Code(s): Z34.90 - ENCNTR FOR SUPRVSN OF NORMAL , UNSP, UNSP TRIMESTER SNOMED Code(s): 67496180 (2) No care in current Current Visit: No Status: Acute Code(s): O09.30 - SUPRVSN OF PREG W INSUFFICIENT ANTENAT CARE, UNSP TRIMESTER SNOMED Code(s): 732022537 (3) Alcohol use disorder Current Visit: No Status: Acute Priority: High Code(s): F10.90 - ALCOHOL USE, UNSPECIFIED, UNCOMPLICATED SNOMED Code(s): 7464990 (4) Polysubstance use disorder Current Visit: No Status: Acute Priority: Medium Code(s): F19.90 - OTHER PSYCHOACTIVE SUBSTANCE USE, UNSPECIFIED, UNCOMPLICATED SNOMED Code(s): 74203003 (5) Status post normal vaginal delivery Current Visit: Yes Status: Acute Code(s): GYW5932 - SNOMED Code(s): 225044712 (6) Obstetrical laceration Current Visit: Yes Status: Acute Code(s): O71.9 - OBSTETRIC TRAUMA, UNSPECIFIED SNOMED Code(s): 948864861 Plan: Patient is doing well . Will plan to continue routine care. Anticipate discharge home tomorrow.
[2023-11-18 21:13] VITALS: RESP 16
[2023-11-19 00:45] VITALS: BP 120/74; PULSE 68; TEMP 98.3
--- NOTE | 2023-11-19 10:05 | P.DS ---
Providers Date of admission: 11/17/23 11:11 Expected date of discharge: 11/19/23 Attending physician: Cecilia Duenas Primary care physician: Stated None - Discharge Diagnosis(es) (1) Term Current Visit: Yes Status: Acute (2) No care in current Current Visit: No Status: Acute (3) Alcohol use disorder Current Visit: No Status: Acute Priority: High (4) Polysubstance use disorder Current Visit: No Status: Acute Priority: Medium (5) Status post normal vaginal delivery Current Visit: Yes Status: Acute (6) Obstetrical laceration Current Visit: Yes Status: Acute Hospital Course: This is a 38-year-old 4 now para 1-1-2-2 that presented to labor and delivery on 11/15 with complaints of abdominal rash and "just wanting to get checked out". Patient had not received care throughout the . Patient states she was seen at multiple institutions and multiple ultrasounds were done. Patient stated an estimated due date of 11 19-11 28 based on these ultrasounds. Patient has been admitted throughout the for alcohol abuse and psychiatric illness. Patient underwent ultrasound evaluation initially with a amniotic fluid index of 6, patient was admitted overnight for observation given amniotic fluid index and inability to establish an estimated due date. Amniotic fluid index was repeated in the morning and found to be 8. Upon further review of records she was deemed to be 38 to 39 weeks, given her low at amniotic fluid index she was admitted for induction of labor. Patient was noted to be 3 cm on initial evaluation the next morning she was 5-6 therefore latent labor was also diagnosed. Patient underwent amniotomy and clear fluid was obtained. Augmentation of labor was begun with Pitocin. Patient did progress through labor becoming uncomfortable and requesting epidural. Epidural was placed without difficulty by the anesthesia department. Patient progressed to complete dilation and began pushing and had normal spontaneous vaginal delivery of a viable female at 1740, weight of 6 pounds 13.2 ounces. Patient did sustain a clitoral/periurethral laceration. This was repaired in the usual fashion with 4-0 chromic. Patient's course has been essentially uneventful. In this day #2 she is ambulating and voiding without difficulty. She is tolerating a regular diet without nausea or vomiting. She states her pain is well-controlled. She denies concerns. Patient Condition at Discharge: Good Plan - Discharge Summary New Discharge Prescriptions: No Action OLANZapine [ZyPREXA] 2.5 mg PO DAILY ondansetron HCL [Zofran] 8 mg PO TID Famotidine [Pepcid] 20 mg PO BID 14 Days #28 tab Desvenlafaxine [Desvenlafaxine ER] 50 mg PO DAILY Discharge Medication List Famotidine [Pepcid] 20 mg PO BID 14 Days #28 tab 09/27/23 [Rx] Desvenlafaxine [Desvenlafaxine ER] 50 mg PO DAILY 10/11/23 [History] OLANZapine [ZyPREXA] 2.5 mg PO DAILY 10/11/23 [History] ondansetron HCL [Zofran] 8 mg PO TID 10/11/23 [History] Follow up Appointment(s)/Referral(s): Cecilia Duenas DO [Doctor of Osteopathic Medicine] - 6 Weeks Patient Instructions/Handouts: Vaginal Delivery (DC), Vaginal Delivery (GEN) Activity/Diet/Wound Care/Special Instructions: No intercourse, tampons or douching. No heavy lifting greater than a gallon of milk. No driving for two weeks. Call with any fever, shakes or chills, with any pain not alleviated by over the counter meds, or with any quesions or concerns. Discharge Disposition: HOME SELF-CARE
== END 2023-11-19 13:43 | disposition home or self-care (01) | DRG 560 ==
LOC: FBPOP 12:39 → 4FBP 15:40 → OBSVTOIN 11-17 11:11
PROVIDERS: ADMIT Obstetrics & Gynecology Obstetrics; ATTEND Obstetrics & Gynecology Obstetrics
PROC: 10E0XZZ Delivery of Products of Conception, External Approach (ICD-10-PCS; principal; 2023-11-17)
PROC: 0UQJXZZ Repair Clitoris, External Approach (ICD-10-PCS; principal; 2023-11-17)
PROC: 0UQMXZZ Repair Vulva, External Approach (ICD-10-PCS; principal; 2023-11-17)
DX: O41.8X30 Other specified disorders of amniotic fluid and membranes, third trimester, not applicable or unspecified (principal); F19.10 Other psychoactive substance abuse, uncomplicated; O71.82 Other specified trauma to perineum and vulva; O99.314 Alcohol use complicating childbirth; O99.324 Drug use complicating childbirth; O99.334 Smoking (tobacco) complicating childbirth; R21 Rash and other nonspecific skin eruption; O99.344 Other mental disorders complicating childbirth; O09.30 Supervision of pregnancy with insufficient antenatal care, unspecified trimester; G43.909 Migraine, unspecified, not intractable, without status migrainosus; F43.10 Post-traumatic stress disorder, unspecified; F32.A Depression, unspecified; O45.90 Premature separation of placenta, unspecified, unspecified trimester; F17.200 Nicotine dependence, unspecified, uncomplicated; F10.10 Alcohol abuse, uncomplicated; Z37.0 Single live birth; Z3A.39 39 weeks gestation of pregnancy
CPT/HCPCS: 59025; 76805; 76815; 80306; 85025; 86850; 86900; 86901; 88307; 99213

== ENCOUNTER → 2024-02-23 | Outpatient (CLI) | payer OTHER ==
[2024-02-23 18:40] LABS: Basophils # (A) 0.09 X 10*3/uL (0.00-0.10); Basophils % (A) 1.4 %; Eosinophils # (A) 0.43 X 10*3/uL (0.04-0.35); Eosinophils % (A) 6.7 %; HCT 40.4 % (37.2-46.3); HGB 13.1 g/dL (12.0-15.0); Lymphocytes % (A) 45.5 %; MCH 27.4 pg (27.0-32.0); MCHC 32.4 g/dL (32.0-37.0); MCV 84.5 FL (80.0-97.0); Mean Platelet Volume 12.2 FL (9.5-12.2); Monocytes # (A) 0.46 X 10*3/uL (0.20-1.00); Monocytes % (A) 7.2 %; NRBC Per 100 WBC 0 X 10*3/uL (0.00-0.01); Neutrophils # (A) 2.49 X 10*3/uL (1.80-7.70); Platelet Count 269 X 10*3/uL (140-440); RBC 4.78 X 10*6/uL (4.10-5.20); RDW 18.6 % (11.5-14.5); WBC 6.38 X 10*3/uL (4.50-10.00)
== END | disposition home or self-care (01) ==
LOC: LABPAT 15:32
PROVIDERS: ATTEND Obstetrics & Gynecology Obstetrics
DX: Z01.812 Encounter for preprocedural laboratory examination (principal)
CPT/HCPCS: 84702; 85025

== ENCOUNTER 2024-02-28 06:22 | Day surgery (SDC) | payer OTHER ==
[2024-02-25 08:39] VITALS: BMI 19.5
[~2024-02-28 06:22] MED LIST: Pre Op ABX Message 1 EACH MISC MISCELLANE ONE
[2024-02-28] MEDS: IV FLUID CONTINUATION 1,000 ML IV ONE ×2 (07:06→08:14)
[2024-02-28] MEDS: DEXAMETHASONE SOD PHOSPHATE 4 MG/ML 1 ML VIAL IV ONE (07:08)
[2024-02-28] MEDS: LACTATED RINGERS 1,000 ML IV SCH (07:08)
[2024-02-28] MEDS: ONDANSETRON 4 MG/2 ML VIAL IVP ONE (07:08)
[2024-02-28] MEDS: SCOPOLAMINE 1 MG/72 HR PATCH TRANSDERM STA (07:09)
[2024-02-28] MEDS ORDERED: KETOROLAC 15 MG/ML 1 ML VIAL ONE (07:30)
[2024-02-28] MEDS ORDERED: fentaNYL (PF) 50 MCG/ML 2 ML AMP ONE (07:30)
[2024-02-28] MEDS ORDERED: LIDOCAINE 1% INJ 10MG/ML (20 ML MDV) ONE (07:30)
[2024-02-28] MEDS ORDERED: SUCCINYLCHOLINE CHLORIDE 200 MG/10 ML VIAL IV ONE (07:30)
[2024-02-28] MEDS ORDERED: NEOSTIGMINE 1 MG/ML 10 ML VIAL ONE (07:30)
[2024-02-28] MEDS ORDERED: ROCURONIUM 10 MG/ML (5 ML VIAL) IV ONE (07:30)
[2024-02-28] MEDS ORDERED: MIDAZOLAM 2 MG/2 ML VIAL ONE (07:30)
[2024-02-28] MEDS ORDERED: GLYCOPYRROLATE 0.2 MG/ML 2 ML VIAL ONE (07:30)
[2024-02-28] MEDS ORDERED: PROPOFOL 10 MG/ML 20 ML VIAL IV ONE (07:30)
--- NOTE | 2024-02-28 07:37 | P.HPOB ---
History of Present Illness H&P Date: 02/28/24 Chief Complaint: Family-planning This is a 38-year-old 4 para 1-1-2-2 that presents to [facility] for scheduled operative laparoscopy with bilateral salpingectomy. Patient has a prior history of 2 spontaneous vaginal deliveries. Patient presented to the [facility] on 11/16 of this year with no care delivering a viable female infant. Patient did present for care and requested bilateral salpingectomy. Patient is currently breast-feeding. Review of Systems Constitutional: Denies chills, Denies fatigue, Denies fever Ears, nose, mouth and throat: Denies headache Cardiovascular: Denies leg edema Respiratory: Denies dyspnea Gastrointestinal: Denies nausea, Denies vomiting Genitourinary: Denies Past Medical History Past Medical History: Musculoskeletal Disorder, Neurologic Disorder Additional Past Medical History / Comment(s): pt states she has MS, migraines, and PPD History of Any Multi-Drug Resistant Organisms: None Reported Past Surgical History: Orthopedic Surgery Additional Past Surgical History / Comment(s): R shoulder 2004 multiple dislocation repair Past Anesthesia/Blood Transfusion Reactions: No Reported Reaction Smoking Status: Vaper - Past Family History Mother Family Medical History: No Reported History Medications and Allergies Home Medications Medication Instructions Recorded Confirmed Type Desvenlafaxine Succinate [Pristiq] 100 mg PO HS 02/25/24 02/25/24 History Topiramate [Topamax] 100 mg PO HS 02/25/24 02/25/24 History Allergies Allergy/AdvReac Type Severity Reaction Status Date / Time diphenhydramine AdvReac SEVERE Verified 02/28/24 06:41 [From Benadryl] SNEEZING Exam Osteopathic Statement: *. No significant issues noted on an osteopathic struct ural exam other than those noted in the History and Physical/Consult. Vital Signs Temp Pulse Resp BP Pulse Ox 02/28/24 06:56 97.4 F L 65 16 96/55 99 Intake and Output 02/27/24 02/28/24 02/28/24 22:59 06:59 14:59 Other: Weight 64 kg Targeted physical exam is performed this date General is a well-nourished well-d eveloped female in no acute distress, breathing is nonlabored, heart has a regular rate and rhythm, abdomen is soft and nontender, on genitourinary exam external genitalia is noted to be normal for age the vaginal mucosa is noted to be pink and well-rugated the uterus is normal in size no masses are appreciated in the adnexa. Assessment and Plan (1) Family planning Current Visit: Yes Status: Acute Code(s): Z30.09 - ENCOUNTER FOR OT GENERAL CNSL AND ADVICE ON CONTRACEPTION SNOMED Code(s): 435093996 Plan: 38-year-old G4 para 1-1-2-2 that presents for bilateral salpingectomy, patient desires permanent sterilization as she is done with childbearing. Surgery is reviewed and risks are discussed. Patient is counseled on risks of surgery including but not limited to infection, bleeding, damage to bladder, bowel, ureteric injury. Patient states understanding and wishes to proceed. Patient states she is done with childbearing and understands permanence of procedure.
[2024-02-28] MEDS: BUPIVACAINE (PF) 0.25% 30 ML VIAL SQ ONE ×2 (08:03)
--- NOTE | 2024-02-28 08:21 | P.OP ---
Date of Procedure: 02/28/24 Preoperative Diagnosis: Family-planning Postoperative Diagnosis: Same Procedure(s) Performed: Operative laparoscopy with bilateral salpingectomy Anesthesia: SERGIO Surgeon: Cecliia Duenas Estimated Blood Loss (ml): 5 Urine output (ml): 100 Pathology: other (Bilateral fallopian tubes) Condition: stable Disposition: PACU Indications for Procedure: Desire for permanent sterilization Operative Findings: Normal pelvic anatomy Description of Procedure: Patient was taken back to the operating room where general anesthesia was obtained without difficulty by the anesthesia department. She was prepped and d raped in the normal sterile fashion in the dorsal lithotomy position. A red rubber catheter was used to drain the bladder of clear yellow urine. A Graves speculum was placed the anterior lip of the cervix was visualized grasped with a single-tooth tenaculum and the acorn uterine manipulator is advanced into the cervix as a means to manipulate the uterus throughout the procedure. Attention then turned to the patient's abdomen where in the umbilical fold a small skin incision is made. Through this incision the Veress needle was placed. Once the Veress needle was deemed to be in the appropriate position with a drop of CO2 pressure with the insufflation of CO2 gas CO2 insufflation was allowed to occur. Approximately 3 L of gas were used to obtain pneumoperitoneum. At this time the additional port sites were placed these were placed in the mid abdomen under direct visualization a 5 mm trocar and an 8 mm trocar placed under direct visualization. The uterus was then elevated both fallopian tubes were noted to be free of adhesions the right fallopian tube was elevated and the LigaSure was used to transect the mesosalpinx up to the cornual region hemostasis was appreciated. This was then repeated on the opposite side. Both fallopian tubes were removed from the abdomen without difficulty. Hemostasis was noted on pedicle sites. At this time all instruments were removed from the patient's abdomen. The skin incisions were closed with 4-0 Vicryl in a subcuticular fashion Steri-Strips and sterile dressings were applied. Attention then turned to the patient's vaginal vault where the single-tooth tenaculum and manipulator were removed hemostasis was appreciated on the anterior cervical lip. All counts were noted to be correct x 2. Patient tolerated procedure well and was taken to the recovery awake in stable condition.
[2024-02-28] MEDS: HYDROmorphone 0.5 MG/0.5 ML SYRINGE IVP PRN (08:37)
[2024-02-28 08:42] VITALS: TEMP 97.5
[2024-02-28 09:09] VITALS: RESP 20
[2024-02-28 09:38] VITALS: BP 107/66; PULSE 52
== END 2024-02-28 09:56 | disposition home or self-care (01) ==
LOC: OR 06:22
PROVIDERS: ATTEND Obstetrics & Gynecology Obstetrics
DX: Z39.2 Encounter for routine postpartum follow-up (principal); G43.909 Migraine, unspecified, not intractable, without status migrainosus; Z88.8 Allergy status to other drugs, medicaments and biological substances
CPT/HCPCS: 81025; 58661; J2250; J0330; J1100; J2710; J2405; J2001; J3010; J1885; J2704; J1170; J0665; J1596; 88302

== ENCOUNTER 2024-11-10 11:58 | Inpatient (IN) | payer MEDICAID, OTHER ==
[2024-11-10] MEDS ORDERED: ACETAMINOPHEN TAB 325 MG TAB PO PRN (12:34)
[2024-11-10] MEDS ORDERED: IBUPROFEN 600 MG TAB PO PRN (12:34)
[2024-11-10] MEDS ORDERED: MAG HYDROX/AL HYDROX/SIMETH 355 ML BOTTLE PO PRN (12:34)
[2024-11-10] MEDS ORDERED: MAGNESIUM HYDROXIDE 2,400 MG/30 ML CUP PO PRN (12:34)
[2024-11-10] MEDS ORDERED: hydrOXYzine HCL 50 MG/ML 1 ML VIAL IM PRN (12:34)
[2024-11-10] MEDS: LORazepam 1 MG TAB PO PRN (14:27)
[2024-11-10] MEDS: hydrOXYzine HCL 25 MG TAB PO PRN (15:59)
--- NOTE | 2024-11-10 22:09 | P.CONS ---
History of Present Illness - Reason for Consult Consult date: 11/10/24 medical co-management - Chief Complaint psychosis - History of Present Illness Sofia is a 39-year-old female with past medical history of depression along with migraine. The patient presents the hospital today due to psychosis. The patient expresses that she has been off her psychiatric medications for approximately 1 week. As per chart review her home medication is cariprazine however the patient denies using this. She reports that her home medications include Pristiq. The patient for unclear reasons has been off her medications for approximately 1 week. She expresses that for the past week she has been taking her medications so she can drink. She reports that she has been drinking approximately 3-4 times in the past week and her last drink was approximately 1 day prior. She currently expresses that she is going through alcohol withdrawal. She reports that she has been drinking approximately half pint a pint when she does binge drink. In addition the patient also reports that she uses methamphetamine and crack. She reports her last usage of methamphetamine was approximately 1 week prior. The patient also exhibits that she vapes. The patient endorses that she has struggled through depression. There is no current lab work on file at this time. Most recent vital signs are from 1400 today. Her temperature is 90.2 her heart rate is 81 respiratory rate 16 her blood pressure is 117/85 and she is 98% room air Past Medical History Past Medical History: No Reported History Additional Past Medical History / Comment(s): pt states she has MS, migraines, and PPD History of Any Multi-Drug Resistant Organisms: None Reported Past Surgical History: No Surgical Hx Reported Additional Past Surgical History / Comment(s): R shoulder 2005 multiple dislocation repair Past Anesthesia/Blood Transfusion Reactions: No Reported Reaction Past Psychological History: Depression, PTSD Smoking Status: Current every day smoker, Vaper Past Alcohol Use History: Daily Additional Past Alcohol Use History / Comment(s): last drink yesterday. Drinking a pint daily. Past Drug Use History: Cocaine, Methamphetamine Additional Drug Use History / Comment(s): pt BAL at [facility] 259. Hx of meth and crack use. UDS negative Medications and Allergies Home Medications Medication Instructions Recorded Confirmed Type Cariprazine HCl [Vraylar] 1.5 mg PO Q48H 11/10/24 11/10/24 History Allergies Allergy/AdvReac Type Severity Reaction Status Date / Time diphenhydramine AdvReac SEVERE Verified 02/28/24 06:41 [From Benadryl] SNEEZING Physical Exam Vitals: Vital Signs Temp Pulse Resp BP Pulse Ox 11/10/24 14:02 98.2 F 81 16 117/85 98 Intake and Output 11/10/24 11/10/24 11/10/24 06:59 14:59 22:59 Other: Weight 59 kg General: non toxic, no distress, female, appear stated age Derm: warm, dry Head: atraumatic, normocephalic, symmetric Eyes: EOMI, no lid lag, anicteric scler ENT: Nose and ears atraumatic, no thrush, no pharyngeal erythema Neck:, trachea midline, supple Mouth: no lip lesion, mucus membranes moist Cardiovascular: S1S2 reg, no murmur, Lungs: clear to ascultation bilateral Abdominal: soft, nontender to palpation, no guarding Ext: no gross muscle atrophy Neuro: Moving all extremities spontaneously Psych: Calm and cooperative Assessment and Plan Assessment: #) Psychosis with notable history that the patient has been off her medications for approximately 1 week so she can drink alcohol. Primary management as per psychiatry team. She expresses her previous medications include Pristiq #) Tobacco use. she expresses she vapes. tobacco cessation recommended. nicotine patch while inpatient #) ETOH use disorder with current etoh withdrawal. etoh cessation recommended. continue ciwa with prn ativan. continue thiamine and multivitamin support #) History of MS, not on any current medications #) migraine disorder. expresses she uses topamax at home. will await med rec before restarting home topamax. acetamiophen prn #) History of post depression #) History of methamphtamine use. cessation recommended #) history of crack use, cessation recommended #) medication nonadhrenace. recommend adherance to home medications Lipid profile CBC CMP A1c TSH, urine drug screen and urine pending at the time of this writing Thank you for allowing us to take care of this patient. Please do not hesitate to contact [facility] if any questions arise Time with Patient: Greater than 30
[2024-11-10] MEDS: NICOTINE 21MG/24HR PATCH TRANSDERM SCH (23:41)
[2024-11-11] MEDS: MULTIVITAMINS, THERA 1 EACH TAB PO SCH (08:46)
[2024-11-11] MEDS: FOLIC ACID 1 MG TAB PO SCH (08:46)
[2024-11-11] MEDS: THIAMINE 100 MG TAB PO SCH (08:47)
[2024-11-11] MEDS ORDERED: NICOTINE 14MG/24HR PATCH TRANSDERM SCH (09:00)
[2024-11-11 11:08] LABS: Basophils # (A) 0.07 10*3/uL (0.00-0.10); Basophils % (A) 1.2 %; Eosinophils % (A) 5.1 %; HCT 44.6 % (37.2-46.3); HGB 14.7 g/dL (12.0-15.0); Lymphocytes # (A) 2.47 10*3/uL (0.90-5.00); Lymphocytes % (A) 42.3 %; MCH 28.7 pg (27.0-32.0); MCV 87.1 fL (80.0-97.0); Monocytes # (A) 0.32 10*3/uL (0.20-1.00); Monocytes % (A) 5.5 %; Neutrophils # (A) 2.67 10*3/uL (1.80-7.70); Neutrophils % (A) 45.7 %; Platelet Count 230 10*3/uL (140-440); RBC 5.12 10*6/uL (4.10-5.20); RDW 13.8 % (11.5-14.5); WBC 5.84 10*3/uL (4.50-10.00)
[2024-11-11 11:42] LABS: ALT 22 U/L (4-34); AST 26 U/L (14-36); African American GFR (CKD) >90 (>60 ml/min/1.73 sqM); Albumin 3.7 g/dL (3.5-5.0); Alkaline Phosphatase 90 U/L (38-126); Anion Gap 6 mmol/L; Bilirubin, Delta 0.2 mg/dL (0.0-0.2); Bilirubin,Unconjugated 0.6 mg/dL (0.0-1.1); Blood Urea Nitrogen 8 mg/dL (7-17); Calcium 9.4 mg/dL (8.4-10.2); Carbon Dioxide 30 mmol/L (22-30); Chloride 102 mmol/L (98-107); Glucose 90 mg/dL (74-99); Non-African American GFR(CKD) >90 (>60 ml/min/1.73 sqM); Potassium 3.8 mmol/L (3.5-5.1); Sodium 138 mmol/L (137-145); Total Bilirubin 0.8 mg/dL (0.2-1.3); Total Protein 6.7 g/dL (6.3-8.2)
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
[2024-11-12 07:44] LABS: LDL Cholesterol,Calculated 86.7 mg/dL (0.0-131.0)
--- NOTE | 2024-11-12 09:31 | P.PN ---
Progress Note - Text Progress Note Date: 11/12/24 Dictation was produced using [employer] dictation software. Please excuse any grammatical, word or spelling errors. Interval history: Patient was seen in the hallway and was directable and agreeable to speak with the entry writer in the office for psychiatric follow-up. The patient states that she is feeling "I need my medications, I feel hostile, agitated." She states that withdrawal symptoms are getting better. She states that her daughter birthday is on the 11/16, and she want to be there for her. Pt was emotional and cried, she states that her medications were working fine, and helping however she stopped using the medications and was drinking. She states that depression and anxiety are at the moderate side, she rated both at 7/10. She denied any current SI/HI or self harm. She denied any current AVH, or paranoia. States that she is getting along well with everyone here. States that she spoke to her and reported that he is very supportive which she is surprised about it since "I did a lot of stupid things in my life." She states that she is not breast-feeding and she had her tubes tied. Patient was encouraged to take care of her hygiene, shower. She admitted to good appetite and reported that she was able to eat dinner and breakfast. Mental status exam: General Appearance: Patient appears to be stated age is alert, directable, and attempts to cooperate. Patient appears to have poor hygiene and grooming. Patient is thin, BMI 18.1 Behavior: Patient is seated without any agitated behavior, she is restless, emotional, cried at time, gait is getting better, more steady Speech: Patient's speech is fluent, fast and pressured at times Mood/Affect: Patient reports their mood is "depressed," affect is congruent and constricted. Suicidality/Homicidality: Patient denies having any homicidal ideation intent or plan. Denies any suicidal ideations intent or plan Perceptions: Patient denies any visual hallucinations and denies any auditory hallucination Though content/process: There is no evidence of any delusional thought content and thought process is linear and goal-directed. Memory and concentration: AOX3, grossly intact for the purposes of this session. Judgment and insight: poor IMPRESSIONS: - Bipolar disorder, depressed, rule out substance-induced - History of major depressive disorder, depression - Alcohol use disorder, severe - Alcohol withdrawal - Cocaine use disorder - Stimulant use disorder - Anxiety disorder, unspecified Assessment/Plan: Continue with current diagnosis. Patient continues to meet criteria for inpatient psychiatric admission for symptom stabilization and safety. Patient will be maintained on current psychotropic medication regimen for alcohol withdrawal Librium 20 mg p.o. 3 times daily was tapered to 10 mg 3 times daily Wednesday, continue CIWA protocol, we will start the patient on her home medication which include Latuda 40 mg p.o. at bedtime to be taken with food, and Pristiq 50 mg p.o. daily, may consider restarting her Topamax 100 mg at some point in her stay. Psychoeducation was provided, risk, benefit and side effect discussed, brief psychotherapy was provided. Monitor for medication compliance and for any psychotropic medication side effects. Will continue to monitor ongoing response to treatment. Encouraged participation in milieu.
[2024-11-12] MEDS: DESVENLAFAXINE SUCCINATE 50 MG TAB.ER.24H PO SCH (09:58)
[2024-11-12] MEDS: LURASIDONE 20 MG TAB PO SCH (21:11)
[2024-11-13] MEDS ORDERED: HALOPERIDOL LACTATE 5 MG/ML 1 ML VIAL IM PRN (11:15)
[2024-11-13] MEDS ORDERED: LORazepam 2 MG/ML INJ IM PRN (11:17)
[2024-11-13] MEDS: LITHIUM CARBONATE 150 MG CAP PO SCH (11:19)
[2024-11-13] MEDS: LORazepam 1 MG TAB PO PRN (11:19)
--- NOTE | 2024-11-13 11:25 | P.PN ---
Progress Note - Text Progress Note Date: 11/13/24 Interval History: Patient was seen laying in her bed and was directable and agreeable to speak w ith continuity writer. Patient claims that she has been feeling depressed, unstable mood, was labile in her affect. has very poor insight and judgment, has poor impulse control. states that she keeps on relapsing on etoh and also states that she has been using meth recreationally lately. she became upset [facility] during the interview stating that she has to be discharged by for her [place] birthday. She is admitting to depression, anxiety, ptsd sx. claims that she is sleeping at night, fair appetite. was requesting an increase in her pristiq. At this time patient denies any suicidal or homical ideations, intent or plan. Patient denies any auditory, visual hallucinations and denies any paranoia or delusions. patient became upset with continuity writer, tearful ,agitated Mental Status Exam: General Appearance: Patient appears to be thin, stated age is alert, directable, and agitation at times, crying. discheveled appearance. Behavior: [Patient is laying in bed, agitated, crying.] impulsive. Speech: Patient's speech is fluent and nonpressured. demanding. Mood/Affect: Mood is decpressed/anxious, affect is congruent and labile/teardful Suicidality/Homicidality: Patient denies having any suicidal or homicidal ideation intent or plan. Perceptions: Patient denies any visual hallucinations [and denies any auditory hallucinations] Though content/process: She is focused on discharge, poor insight poor judgment. Minimizing. Memory and concentration: AOX3, grossly intact for the purposes of this session Judgment and insight: Poor/impulsive. Assessment Bipolar disorder, current episode depressed Hx of PTSD Alcohol use disorder, severe Cocaine use disorder methamphetamine use disorder Anxiety disorder, unspecified Plan: -Patient continues to meet criteria for inpatient psychiatric admission for symptom stabilization and safety. Patient has signed adult voluntary form and was placed in patient's chart. -Medications: d/c latuda and replace with lithium 150 mg tid for mood stabilization, pristiq increase to 75 mg daily for mood/anxiety, topamax 100 mg daily as home dose, taper off librium tomorrow afternoon. vistaril prn for anxiety. declining any anti cravings meds for etoh. -When necessary Ativan and Haldol for agitation/aggression. -NRT - nicotine patch -SW on board for discharge planning. Encouraged the patient to participate in milieu. patient is curently awaiting acceptance into a [facility] center.
[2024-11-13] MEDS: haloperidoL 5 MG TAB PO PRN (17:30)
[2024-11-13] MEDS: TOPIRAMATE 25 MG TAB PO SCH (20:59)
[2024-11-14] MEDS: DESVENLAFAXINE SUCCINATE 50 MG TAB.ER.24H PO SCH (08:27)
--- NOTE | 2024-11-14 11:40 | P.PN ---
Progress Note - Text Progress Note Date: 11/14/24 Interval History: Patient was seen laying in her bed and was directable and agreeable to speak w ith business writer. Patient claims that she was feeling bit tired this morning, claims that she has been taking her medications not reporting any issues. Did claim that she had a headache earlier this morning. Claims that she is tolerating medications fairly well. Denies any withdrawal symptoms at this time. Claims that she is still waiting on [facility] to accept her once she is discharged. Insight and judgment appear to be improving mildly. Impulsivity and irritability also appear to be improving. She claims that her mood and anxiety have been improving. was requesting an increase in her pristiq. At this time patient denies any suicidal or homical ideations, intent or plan. Patient denies any auditory, visual hallucinations and denies any paranoia or delusions. Patient was more cooperative today with business writer and directable. Mental Status Exam: General Appearance: Patient appears to be thin, stated age is alert, directable, and more cooperative today. less discheveled appearance. Behavior: Patient is laying in bed, more cooperative today. Improving impulsivity Speech: Patient's speech is fluent and nonpressured. Mood/Affect: Mood is improving mildly, affect is congruent Suicidality/Homicidality: Patient denies having any suicidal or homicidal ideation intent or plan. Perceptions: Patient denies any visual hallucinations and denies any auditory hallucinations Though content/process: She is focused on discharge, insight and judgment improving. More future oriented. Memory and concentration: AOX3, grossly intact for the purposes of this session Judgment and insight: Poor, improving mildly Assessment Bipolar disorder, current episode depressed Hx of PTSD Alcohol use disorder, severe Cocaine use disorder methamphetamine use disorder Anxiety disorder, unspecified Plan: -Patient continues to meet criteria for inpatient psychiatric admission for symptom stabilization and safety. Patient has signed adult voluntary form and was placed in patient's chart. -Medications: Change lithium 300 mg HS tonight and increase to 450 mg qhs starting tomorrow for mood stabilization, pristiq increase to 100 mg daily for mood/anxiety, topamax 50 mg bid, taper off librium today. vistaril prn for anxiety. declining any anti cravings meds for etoh. -When necessary Ativan and Haldol for agitation/aggression. -NRT - nicotine patch -SW on board for discharge planning. Encouraged the patient to participate in milieu. patient is curently awaiting acceptance into a [facility]. hopeful for discharge if patient is improving.
[2024-11-14 14:20] VITALS: BMI 18.0
[2024-11-14] MEDS: LORazepam 1 MG TAB PO PRN (21:07)
[2024-11-14] MEDS: LITHIUM CARBONATE 300 MG CAP PO ONE (21:08)
[2024-11-15] MEDS: DESVENLAFAXINE SUCCINATE 50 MG TAB.ER.24H PO SCH (08:23)
[2024-11-15] MEDS ORDERED: hydrOXYzine pamoate 25 MG CAP PO PRN (11:29)
--- NOTE | 2024-11-15 11:33 | P.PN ---
Progress Note - Text Progress Note Date: 11/15/24 Interval History: Patient was seen laying in her bed and was directable and agreeable to speak w ith insurance writer. Patient claims that she is doing a bit better today, denies any depression or anxiety at this time. Did claim that the higher dose of lithium was making her feel a bit "irritable" and was requesting to have it decreased. Does state that her mood swings have been improving. Has been mainly keeping himself, claims that she is "bored" on the unit however was encouraged to go to groups she claims that she will try to do that today. She was requesting to get off of Ativan and have Vistaril as needed for her anxiety. She continues to be fairly focused on discharge. Denies any overnight complaints, states that she is sleeping well eating well. At this time patient denies any suicidal or homical ideations, intent or plan. Patient denies any auditory, visual hallucinations and denies any paranoia or delusions. Mental Status Exam: General Appearance: Patient appears to be thin, stated age is alert, directable, and more cooperative today. less discheveled appearance. Behavior: Patient is laying in bed, more cooperative today. Improving Speech: Patient's speech is fluent and nonpressured. Mood/Affect: Mood is improving mildly, affect is congruent Suicidality/Homicidality: Patient denies having any suicidal or homicidal ideation intent or plan. Perceptions: Patient denies any visual hallucinations and denies any auditory hallucinations Though content/process: She is focused on discharge, insight and judgment improving. More future oriented. Memory and concentration: AOX3, grossly intact for the purposes of this session Judgment and insight: improving mildly Assessment Bipolar disorder, current episode depressed Hx of PTSD Alcohol use disorder, severe Cocaine use disorder methamphetamine use disorder Anxiety disorder, unspecified Plan: -Patient continues to meet criteria for inpatient psychiatric admission for symptom stabilization and safety. Patient has signed adult voluntary form and was placed in patient's chart. -Medications: Decrease lithium 300 mg HS for mood stabilization, pristiq 100 mg daily for mood/anxiety, topamax 50 mg bid, vistaril prn for anxiety. declining any anti cravings meds for etoh. -d/c ciwa protocol with prn ativan -When necessary Ativan and Haldol for agitation/aggression. -NRT - nicotine patch -SW on board for discharge planning. Encouraged the patient to participate in milieu. patient was accepted to [facility]' rehab, intake date set for Wednesday. hopeful for discharge tomorrow if patient is improving.
[2024-11-15] MEDS ORDERED: LITHIUM CARBONATE 150 MG CAP PO SCH (21:00)
[2024-11-15] MEDS: LITHIUM CARBONATE 300 MG CAP PO SCH (21:49)
[2024-11-16 01:19] VITALS: RESP 16
[2024-11-16 08:26] VITALS: BP 104/76; PULSE 112; TEMP 97.3
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
== END 2024-11-16 13:20 | disposition home or self-care (01) | DRG 753 ==
LOC: 3MHU 14:01
PROVIDERS: ADMIT Psychiatry & Neurology Psychiatry; ATTEND Psychiatry & Neurology Psychiatry
DX: F31.30 Bipolar disorder, current episode depressed, mild or moderate severity, unspecified (principal); F43.10 Post-traumatic stress disorder, unspecified; F10.239 Alcohol dependence with withdrawal, unspecified; F14.10 Cocaine abuse, uncomplicated; F15.20 Other stimulant dependence, uncomplicated; F17.290 Nicotine dependence, other tobacco product, uncomplicated; F41.9 Anxiety disorder, unspecified; F60.9 Personality disorder, unspecified; G43.909 Migraine, unspecified, not intractable, without status migrainosus; R45.851 Suicidal ideations; F53.0 Postpartum depression; O99.345 Other mental disorders complicating the puerperium; Z79.899 Other long term (current) drug therapy; Y90.8 Blood alcohol level of 240 mg/100 ml or more; Z88.8 Allergy status to other drugs, medicaments and biological substances; T50.916A Underdosing of multiple unspecified drugs, medicaments and biological substances, initial encounter; Z91.148 Patient's other noncompliance with medication regimen for other reason; G35 Multiple sclerosis; Z91.51 Personal history of suicidal behavior; F51.5 Nightmare disorder; Z87.828 Personal history of other (healed) physical injury and trauma
CPT/HCPCS: 80053; 80061; 82248; 83036; 84443; 85025

== ENCOUNTER → 2024-11-27 | Outpatient (CLI) | payer OTHER | END | disposition home or self-care (01) | LOC: LABWHC1 11:17 | PROVIDERS: ATTEND Family Medicine | DX: F33.1 Major depressive disorder, recurrent, moderate (principal) ==

== ENCOUNTER 2025-02-23 13:14 | Inpatient (IN) | payer MEDICAID, OTHER ==
[2025-02-23] MEDS ORDERED: IBUPROFEN 600 MG TAB PO PRN (14:13)
[2025-02-23] MEDS ORDERED: MAGNESIUM HYDROXIDE 2,400 MG/30 ML CUP PO PRN (14:13)
[2025-02-23] MEDS ORDERED: MAG HYDROX/AL HYDROX/SIMETH 355 ML BOTTLE PO PRN (14:13)
[2025-02-23] MEDS ORDERED: LORazepam 1 MG TAB PO PRN (14:13)
[2025-02-23] MEDS ORDERED: HALOPERIDOL LACTATE 5 MG/ML 1 ML VIAL IM PRN (14:13)
[2025-02-23] MEDS ORDERED: ACETAMINOPHEN TAB 325 MG TAB PO PRN (14:13)
[2025-02-23] MEDS: NICOTINE 14MG/24HR PATCH TRANSDERM SCH (14:28)
[2025-02-23] MEDS: LORazepam 1 MG TAB PO PRN ×2 (14:28→21:16)
[2025-02-24] MEDS: lamoTRIgine 25 MG TAB PO SCH (21:28)
[2025-02-24] MEDS: hydrOXYzine HCL 25 MG TAB PO SCH (21:29)
[2025-02-24] MEDS: LITHIUM CARBONATE 300 MG CAP PO SCH (21:37)
[2025-02-25] MEDS: DESVENLAFAXINE SUCCINATE 50 MG TAB.ER.24H PO SCH (10:31)
[2025-02-25] MEDS: TOPIRAMATE 100 MG TAB PO SCH (10:32)
--- NOTE | 2025-02-25 20:44 | P.HP ---
Psychiatric H&P - . H&P Date: 02/24/25 History & Physical: IDENTIFYING DATA: Patient is a 39 year old female with history of multiple past admissions. HPI: Patient was evaluated on 02/24/25. Patient presented to the hospital as a transfer from [facility]. Per chart, "Patient arrived at [facility] with mother related to suicidal ideations and intoxication. Patient was evaluated by [facility] once sober and verbalizes suicidal ideation with a plan to overdose on medications. Patient has history of bipolar disorder, PTSD, and alcohol use disorder. Patient verbalizes increased alcohol use. Noted to be drinking a pint per day, drank 1/2 gallon prior to ED arrival. Patient BAL 395.7 on arrival. UDS negative." On evaluation today, patient appears irritable and on edge, appears to be medication seeking. She repeatedly requests Klonopin, calls this mortgage or loan underwriter "girl" and claims "I'm not medication seeking...but can I have some Klonopin". She continues to be focused on Klonopin for her "bitchiness" (how she describes her current state) and irritability. She tends to be argumentative and antagonistic, impulsive and irritable. He has difficulty sitting still for the entire assessment, fidgets, appears to have poor frustration tolerance and appears eager to end the assessment. Most of the history was taken from a previous evaluation due to her limited ability to sit for the assessment. Patient denies any suicidal or homicidal ideation, intent or plan currently. At this time patient denies any auditory or visual hallucinations. Patient denies any flight of ideas racing thoughts and increased in goal directed behavior. Patient admits to using drinking too much alcohol but is vague about quantity. She is currently on a Librium taper at 20 mg TID and CIWA for alcohol withdrawal on admission to the unit. So far she has required Ativan 1 mg po x 1 per CIWA yesterday, 1 mg x 2 per CIWA so far today. She also required Haldol 5mg po x 2 yesterday and 5 mg po x 2 again today. BAL 395.7 on arrival in ER. UDS negative. PAST PSYCHIATRIC HISTORY: The following was taken from a prior H&P and updated as possible. - Inpatient Hospitalizations: states that she has multiple inpatient hospitalizations over her life 15-20 times. 2 prior hospitalizations at [facility] - Outpatient Care: [facility], [facility] not clear who she is following up with currently - Current Psychotropics: Wants to restart her meds Prestiq, Ogallah, Topamax, Hydroxyzine. - Prior Psychotropics/Therapy: Per chart Prestiq, Latuda, Naltrexone, Topamax, Seroquel, Zoloft, Risperdal, gabapentin, Concerta, lithium, Depakote, Abilify, and others she could not remember. - Prior Psychiatric diagnoses: MDD, adjustment disorder, personality disorder, alcohol use disorder, polysubstance use disorder, Eating disorder, bipolar disorder, schizoaffective disorder - Suicidal Attempts: Patient reported that she had them 6-7 times in the past PMH: Past Medical History: No Reported History Additional Past Medical History / Comment(s): pt states she has MS, migraines, and PPD History of Any Multi-Drug Resistant Organisms: None Reported Past Surgical History: No Surgical Hx Reported Additional Past Surgical History / Comment(s): R shoulder 2005 multiple dislocation repair Past Anesthesia/Blood Transfusion Reactions: No Reported Reaction Past Psychological History: Depression, PTSD Smoking Status: Current every day smoker, Vaper Past Alcohol Use History: Daily Additional Past Alcohol Use History / Comment(s): last drink yesterday. Drinking a pint daily. Past Drug Use History: Cocaine, Methamphetamine Additional Drug Use History / Comment(s): pt BAL at [facility] 259. Hx of meth and crack use. UDS negative ALLERGIES: as per EMR CHEMICAL DEPENDENCY HISTORY: as per HPI FAMILY PSYCHIATRIC/SUBSTANCE USE HISTORY: both parents has depression, bipolar, mom has eating disorder. Denied any suicide in the family, Dad used substance and alcohol, as well as siblings SOCIAL HISTORY: Patient was born and raised in [place], lives in [place], with her SO Samuel, and her 2 child, 11 months, and 7 yo, her mother is taking care of them. She get child support. 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 States that she was in [place] [facility], not on probation. MENTAL STATUS EXAM: General Appearance: Patient appears to be stated age, tall slender female, fair hygiene/grooming. Behavior: Patient fidgets, has difficulty sitting still for the assessment, is argumentative and antagonistic Speech: Patient's speech is fluent and non-pressured. Mood/Affect: Patient reports their mood is "bitchy", affect is congruent and constricted. Suicidality/Homicidality: Patient denies having any homicidal ideation intent or plan. Denies any suicidal ideation intent or plan Perceptions: Patient denies any visual hallucinations and denies any auditory hallucinations Though content/process: There is no evidence of any overtly delusional thought content. Thought process is argumentative Memory and concentration: AOX3, grossly intact for the purposes of this session. Can spell "WORLD" backwards Judgment and insight: very poor STRENGTHS/WEAKNESSES: strength is that patient is resilient. Weakness is that patient has poor judgment and is impulsive. INTELLECT: average IMPRESSIONS: Unspecified mood disorder, r/o substance induced mood disorder vs Bipolar disorder Alcohol use disorder, severe Alcohol withdrawal, currently on Librium taper and Ativan PRN per [facility] protocol Methamphetamine use disorder by history Cocaine use disorder by history Rule out Anxiolytic use disorder Cluster B personality PLAN: -Patient is admitted under involuntary status as a transfer to [facility] for stabilization of psychiatric symptoms and safety. Patient has signed adult voluntary form and is placed in patient's chart. -Medications: Will restart patient on home meds: Prestiq 100 mg daily, Topamax 100 mg daily, Ogallah 300 mg daily, Hydroxyzine 50 mg TID. Librium taper was started at 20 mg TID on admission and will continue at this dose for alcohol withdrawal. Start Lamictal 25 mg daily with plan to slowly titrate every 2 weeks for mood stabilization. Monitor for rash. -Ativan and Haldol PRN for agitation/aggression -Started thiamine, MVM for etoh use -[facility] protocol with Ativan PRN for ETOH withdrawal -Patient was counselled on substance abuse -Patient was informed of the risks, benefits and side effects of the medication and patient verbally consented to taking the medications. -Internal Medicine consult to perform medical evaluation and physical. -NRT - nicotine patch -SW on board for discharge planning. Encourage patient to participate in groups to work on coping skills. Allergies Allergy/AdvReac Type Severity Reaction Status Date / Time diphenhydramine AdvReac SEVERE Verified 02/28/24 06:41 [From Benadryl] SNEEZING Vital Signs Temp 97.9 F 02/23/25 14:11 Pulse 93 02/23/25 14:11 Resp 18 02/23/25 14:11 BP 107/76 02/23/25 14:11 Pulse Ox 98 02/23/25 14:11 FiO2 Intake & Output 02/23/25 02/24/25 02/24/25 18:59 06:59 18:59 Weight 60.645 kg 02/24/25 14:38 02/24/25 20:11 02/25/25 20:38 02/25/25 20:41
--- NOTE | 2025-02-25 20:47 | P.PN ---
Progress Note - Text Progress Note Date: 02/25/25 Interval history: Patient was seen today eating her dinner and was agreeable to speak with process description writer on finishing her meal, however she continues to be irritable, argumentative and antagonistic on assessment today. Her alcohol withdrawal appears controlled today; current vital signs appear normal. At this time patient denies any suicidal or homicidal ideation, intent or plan. Denies any auditory or visual hallucinations. Patient denies any side effects from the medications and has been compliant with meds. Mental status exam: General Appearance: Patient appears to be stated age, tall slender female, fair hygiene/grooming. Behavior: Patient is argumentative and antagonistic, irritable, has difficulty with frustration tolerance Speech: Patient's speech is loud, fluent and non-pressured. Mood/Affect: Mood is irritable, affect is congruent and constricted. Suicidality/Homicidality: Patient denies having any homicidal ideation intent or plan. Denies any suicidal ideation intent or plan Perceptions: Patient denies any visual hallucinations and denies any auditory hallucinations Though content/process: There is no evidence of any overtly delusional thought content. Thought process is argumentative Memory and concentration: AOX3, grossly intact for the purposes of this session. Judgment and insight: very poor Assessment/Plan: Continue with current diagnosis. Patient continues to meet criteria for inpatient psychiatric admission for symptom stabilization and safety. Meds: Decrease Librium taper to 10 mg TID starting tonight for alcohol withdrawal. Continue Ativan PRN per CIWA. Monitor for medication compliance and for any psychotropic medication side effects. Will continue to monitor ongoing response to treatment. Encouraged participation in milieu.
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
[2025-02-26] MEDS ORDERED: LITHIUM CARBONATE 150 MG CAP PO SCH (21:00)
[2025-02-26] MEDS: lamoTRIgine 25 MG TAB PO SCH (21:03)
--- NOTE | 2025-02-26 21:29 | P.CONS ---
History of Present Illness - Reason for Consult Consult date: 02/26/25 medical co mangement - Chief Complaint SI - History of Present Illness Sofia is a 9-year-old female with a past medical history significant for mood disorder, depression along with primary disorder. She presents to hospitalist after she reports that she had suicidal ideation. The patient reports that she has been drinking alcohol excessively. She denies any other recreational drug use. Reports that she is compliant with her medications. Is asking for her Topamax to be restarted. She reports she does vape. In the ER at [facility] and her blood alcohol level was noted be 395. There is no lab work currently seen on [facility] A.m. lab work shows her temperature was 97.2 heart rate of 114 blood pressure 82/51 using 100% room air Review of Systems ROS negative except for HPI Past Medical History Past Medical History: Seizure Disorder Additional Past Medical History / Comment(s): pt states she has migraines and withdrawal seizures History of Any Multi-Drug Resistant Organisms: None Reported Past Surgical History: No Surgical Hx Reported Additional Past Surgical History / Comment(s): R shoulder 2005 multiple dislocation repair Past Anesthesia/Blood Transfusion Reactions: No Reported Reaction Past Psychological History: Bipolar, Depression, PTSD Smoking Status: Vaper Past Alcohol Use History: Daily Additional Past Alcohol Use History / Comment(s): last drink yesterday. Drinking a pint daily per [facility]. Per patient drank 1/2 gallon for 2 days prior to admission (02/20 and 02/21) but was sober since previous discharge in October. Past Drug Use History: Cocaine, Methamphetamine Additional Drug Use History / Comment(s): pt BAL at [facility] 395.7. Hx of meth and crack use. UDS negative Medications and Allergies Home Medications Medication Instructions Recorded Confirmed Type Desvenlafaxine Succinate [Pristiq 100 mg PO DAILY 30 Days #60 tab 11/16/24 Rx ER] Folic Acid 1 mg PO DAILY tab 11/16/24 Rx Pena Carbonate 300 mg PO HS 30 Days #30 cap 11/16/24 Rx Multivitamins, Thera [Multivitamin 1 each PO DAILY tab 11/16/24 Rx (formulary)] Nicotine 21Mg/24Hr Patch [Habitrol] 1 patch TRANSDERM DAILY 14 Days 11/16/24 Rx #14 patch Thiamine [Vitamin B-1] 100 mg PO DAILY tab 11/16/24 Rx Topiramate [Topamax] 50 mg PO BID 30 Days #120 tab 11/16/24 Rx hydrOXYzine pamoate [Vistaril] 50 mg PO DAILY PRN 30 Days #60 cap 11/16/24 Rx Allergies Allergy/AdvReac Type Severity Reaction Status Date / Time diphenhydramine AdvReac SEVERE Verified 02/28/24 06:41 [From Benadryl] SNEEZING Physical Exam Vitals: Vital Signs Temp Pulse BP Pulse Ox 02/26/25 11:59 89/61 02/26/25 08:18 97.2 F L 114 H 82/51 100 General: non toxic, no distress, female Derm: warm, dry Head: atraumatic, normocephalic, symmetric Eyes: EOMI, no lid lag, anicteric sclera ENT: Nose and ears atraumatic, no thrush, no pharyngeal erythema Neck: No thyromegaly, no cervical lymphadenopathy Mouth: no lip lesion, mucus membranes moist Cardiovascular: S1S2 reg, no murmur Lungs: clear to ascultation bilateral, no ronchi, no rales, no wheeze, no accessory muscle use Abdominal: soft, nontender to palpation, no guarding, no appreciable organomegaly, normal bowel sounds Ext: no gross muscle atrophy Neuro: Moving all extremity spontaneously Psych: calm and copoerative Assessment and Plan Assessment: #) suicideal ideation, primary management as per psychaitry team #) tobacco use, reports vapes, recommend cessation. nicotine patch while inpatient #) etoh use disorder, continue high dose thiamien with multivitamin. coneinut ciiwa with prn ativan #) history of MS, not on any current medications #) migraine disorder continue home topamax #) history of post depression #) mood disorder, check lithium level cbc, cmp, a1c, uds, lipid profile pending in am. thank you for allowing us to take care of this patient. please do not hesistate to contact us if any further questions arise.
[2025-02-27] MEDS: LITHIUM CARBONATE 150 MG CAP PO SCH (08:31)
[2025-02-27 11:14] LABS: Basophils # (A) 0.05 10*3/uL (0.00-0.10); Basophils % (A) 1.1 %; Eosinophils # (A) 0.33 10*3/uL (0.04-0.35); Eosinophils % (A) 6.9 %; HCT 36.6 % (37.2-46.3); HGB 12.3 g/dL (12.0-15.0); Lymphocytes # (A) 1.95 10*3/uL (0.90-5.00); Lymphocytes % (A) 41.0 %; MCH 30.6 pg (27.0-32.0); MCHC 33.6 g/dL (32.0-37.0); MCV 91.0 fL (80.0-97.0); Monocytes # (A) 0.28 10*3/uL (0.20-1.00); Monocytes % (A) 5.9 %; Neutrophils # (A) 2.14 10*3/uL (1.80-7.70); Neutrophils % (A) 44.9 %; Platelet Count 199 10*3/uL (140-440); RBC 4.02 10*6/uL (4.10-5.20); RDW 12.6 % (11.5-14.5); WBC 4.76 10*3/uL (4.50-10.00)
--- NOTE | 2025-02-27 11:31 | P.PN ---
Progress Note - Text Progress Note Date: 02/27/25 Interval History: Patient was seen today for psychiatric follow up. patient was laying in bed to day agreeable to speak to radio news writer in the office. Patient claims that she is feeling more tired with the Atarax being scheduled. She wanted to change it to as needed dosing. Claims that she slept on and off last night, we spoke about other alternatives she was agreeable to try melatonin for tonight. Claims that she is trying to go to some groups however has been feeling fairly tired. Not reporting any rash at this time or any other side effects from medications. Claims that she is still waiting on a decision from [facility] so that she can bring her kids to rehab. Insight and judgment appear to be improving. Was encouraged to drink fluids today to help manage her lithium level and also her blood pressure. Has been eating well. Denies any auditory or visual hallucinations denies any suicidal or homicidal ideations intent or plan. MENTAL STATUS EXAM: General Appearance: Patient appears to be stated age, tall slender female, fair hygiene/grooming. Behavior: Patient argumentative at time. Attempts to cooperate. Speech: Patient's speech is fluent and non-pressured. Mood/Affect: Patient reports their mood is "better today", affect is congruent and improving mildly Suicidality/Homicidality: Patient denies having any homicidal ideation intent or plan. Denies any suicidal ideation intent or plan Perceptions: Patient denies any visual hallucinations and denies any auditory hallucinations Though content/process: There is no evidence of any overtly delusional thought content. Thought process is more clear today. focused on her medications. Memory and concentration: AOX3, grossly intact for the purposes of this session Judgment and insight: improving mildly IMPRESSIONS: Bipolar disorder unspecified Alcohol use disorder, severe Alcohol withdrawal, currently on Librium taper and Ativan PRN per CIWA protocol Methamphetamine use disorder by history Cocaine use disorder by history Rule out Anxiolytic use disorder Cluster B personality PLAN: -Patient is admitted under involuntary status as a transfer to MHU for stabilization of psychiatric symptoms and safety. Patient has signed adult voluntary form and is placed in patient's chart. -Medications: Prestiq 100 mg daily, Topamax 100 mg daily, [place] 450 mg daily, Hydroxyzine 50 mg TID. lamictal 25 mg bid for mood stabilization, will continue monitoring for a rash, not reporting any at this time. added melatonin 10 mg qhs for sleep. -Ativan and Haldol PRN for agitation/aggression -thiamine, MVM for etoh use -CIWA protocol with Ativan PRN for ETOH withdrawal -NRT - nicotine patch -SW on board for discharge planning. Encourage patient to participate in groups to work on coping skills. patient waiting for approval for rehab at [facility]. likely discharge in 1-2 days.
[2025-02-27 12:19] LABS: ALT 20 U/L (4-34); AST 20 U/L (14-36); African American GFR (CKD) >90 (>60 ml/min/1.73 sqM); Albumin 3.2 g/dL (3.5-5.0); Alkaline Phosphatase 58 U/L (38-126); Anion Gap 8 mmol/L; Blood Urea Nitrogen 12 mg/dL (7-17); Calcium 8.8 mg/dL (8.4-10.2); Carbon Dioxide 24 mmol/L (22-30); Chloride 104 mmol/L (98-107); Glucose 81 mg/dL (74-99); Lithium 0.7 mmol/L; Non-African American GFR(CKD) >90 (>60 ml/min/1.73 sqM); Potassium 4.0 mmol/L (3.5-5.1); Sodium 136 mmol/L (137-145); Total Protein 5.6 g/dL (6.3-8.2)
[2025-02-27] MEDS: hydrOXYzine HCL 25 MG TAB PO PRN (14:30)
[2025-02-27 15:16] LABS: Cholesterol 141.00 mg/dL (0.00-200.00); HDL Cholesterol 53.70 mg/dL (40.00-60.00); LDL Cholesterol,Calculated 71.7 mg/dL (0.0-131.0); Triglycerides 78.00 mg/dL (0.00-149.00); VLDL Calculation 15.60 mg/dL (5.00-40.00)
[2025-02-27 20:33] LABS: Urine Alcohol Negative (Negative); Urine Barbiturate Negative (Negative)
[2025-02-27] MEDS: MELATONIN 5 MG TABLET PO SCH (21:14)
[2025-02-27 21:25] VITALS: RESP 20
[2025-02-28 08:29] VITALS: BP 98/68; PULSE 107; TEMP 98.1
--- NOTE | 2025-02-28 10:31 | P.DS ---
Providers Date of admission: 02/23/25 13:45 Expected date of discharge: 02/28/25 Attending physician: Dov Lee MD Consults: 02/23/25 14:13 Consult Physician Routine Consulting Provider: Analy Charles Consult Reason/Comments: History and Physical, New Admission Do you want consulting provider notified?: Yes Primary care physician: Stated None - Discharge Diagnosis(es) (1) Bipolar disorder Current Visit: Yes Status: Acute Priority: High (2) Alcohol use disorder, severe, dependence Current Visit: Yes Status: Acute Priority: High (3) Methamphetamine use disorder, moderate Current Visit: Yes Status: Acute Priority: Medium (4) Cocaine use disorder Current Visit: Yes Status: Acute Priority: Medium (5) Cluster B personality disorder Current Visit: Yes Status: Acute Priority: Medium (6) Nicotine dependence Current Visit: Yes Status: Acute Priority: Low Hospital Course: Admission HPI: Admission note was completed by Dr Tovar "patient is a 39 year old female with history of multiple past admissions. Patient was evaluated on 02/24/25. Patient presented to the hospital as a transfer from [facility]. Per chart, "Patient arrived at [facility] with mother related to suicidal ideations and intoxication. Patient was evaluated by [facility] once sober and verbalizes suicidal ideation with a plan to overdose on medications. Patient has history of bipolar disorder, PTSD, and alcohol use disorder. Patient verbalizes increased alcohol use. Noted to be drinking a pint per day, drank 1/2 gallon prior to ED arrival. Patient BAL 395.7 on arrival. UDS negative." On evaluation today, patient appears irritable and on edge, appears to be medication seeking. She repeatedly requests Klonopin, calls this scenario writer "girl" and claims "I'm not medication seeking...but can I have some Klonopin". She continues to be focused on Klonopin for her "bitchiness" (how she describes her current state) and irritability. She tends to be argumentative and antagonistic, impulsive and irritable. He has difficulty sitting still for the entire assessment, fidgets, appears to have poor frustration tolerance and appears eager to end the assessment. Most of the history was taken from a p revious evaluation due to her limited ability to sit for the assessment. Patient denies any suicidal or homicidal ideation, intent or plan currently. At this time patient denies any auditory or visual hallucinations. Patient denies any flight of ideas racing thoughts and increased in goal directed behavior. Patient admits to using drinking too much alcohol but is vague about quantity. She is currently on a Librium taper at 20 mg TID and CIWA for alcohol withdrawal on admission to the unit. So far she has required Ativan 1 mg po x 1 per CIWA yesterday, 1 mg x 2 per CIWA so far today. She also required Haldol 5mg po x 2 yesterday and 5 mg po x 2 again today. BAL 395.7 on arrival in ER. UDS negative." Hospital course: Upon admission to the unit patient was directable and agreeable to commence treatment and signed adult voluntary form. Patient was initially irritable, depressed withdrawn however with time and treatment patient got along well with other patients on the unit and followed unit protocol. Patient was compliant with the medications and denied any side effects throughout hospital course. Patient was started on Pristiq 100 mg daily for mood/anxiety, and Topamax 100 mg daily, lithium increased to 450 mg daily for mood stabilization/suicidal thoughts, hydroxyzine 50 mg twice daily as needed for anxiety, Lamictal 25 mg twice daily for mood stabilization/depression. Patient was advised of the possibility of a rash was monitoring her skin did not report any rash. Melatonin 10 mg nightly for sleep. Patient was also placed on CIWA protocol with as needed Ativan for alcohol withdrawal. Patient spoke of her stressors and engaged in therapy both group/activity therapy. Patient was also seen by medical team for history and physical exam. Throughout the course of the hospitalization patient gradually improved with regards to mood, anxiety, sleep and returned back to their baseline level of functioning. On the day of discharge patient denied any suicidal or homicidal ideations intent or plan denied any auditory or visual hallucinations. Patient endorsed wanting to live for their health and family. The patient denied any access to guns or weapons. Patient denied any paranoia and did not endorse any delusions. Patient does have a significant history of substance abuse and was counseled on abstaining from all substances including alcohol and marijuana. Patient elected to do outpatient substance use treatment program through their outpatient provider. Patient ended up agreeing to inpatient subtance rehab, she is continuing to wait for her intake date and [facility] [place]. Patient was also counseled on the medications and need for regular compliance and was encouraged to follow-up with their outpatient appointment for mental health and also for primary care. Mental status exam: General Appearance: Patient appears to be tall, thin, stated age is alert, pleasant, and cooperative. Patient is in no acute distress and has improved hygiene and grooming Behavior: Patient is calmly seated without any agitated behavior. Speech: Patient's speech is fluent and nonpressured. Mood/Affect: Patient reports their mood is "good", affect is congruent and euthymic. Suicidality/Homicidality: Patient denies having any suicidal or homicidal ideation intent or plan. Perceptions: Patient denies any auditory or visual hallucinations. Though content/process: There is no evidence of any delusional thought content and thought process is linear and goal-directed. More future oriented Memory and concentration: AOX3, grossly intact for the purposes of this session. Can spell "WORLD" backwards correctly. Judgment and insight: Chronically poor, however has improved with guarded prognosis Impression: Bipolar disorder Alcohol use disorder severe dependence Methamphetamine use disorder moderate Cocaine use disorder Cluster B personality disorder Nicotine dependence Plan: -Continue with discharge today as patient has improved and stabilized psychiatrically and is not currently an imminent threat to themself and/or others. Patient will remain at chronically elevated risk for harm to self and/or others due to their impulsivity and substance abuse. -Continue medications: Pristiq 100 mg daily, Topamax 100 mg daily, lithium 450 mg daily, Atarax 25 mg twice daily as needed for anxiety, melatonin 10 mg nightly for sleep, Lamictal 25 g twice daily for mood stabilization/depression -Patient was counseled on the need for medication compliance and appropriate follow-up at mental health and also primary care for medical issues. Patient verbalized understanding and agreed. -Social work to help coordinate patients discharge today. also to ensure safe home environment that guns/weapons are either removed from the home or locked away. Social work also to arrange for patients follow up appointments with [facility] for psychiatric care along with follow up with primary care provider. -Patient counseled on abstaining from recreational drugs and marijuana and alcohol. Was informed/educated on the adverse effects on their physical and mental health. Patient verbally agreed and understood. Patient is still waiting on her intake date at [facility] -Patient was instructed to return to the hospital or seek immediate medical care if their psychiatric or medical symptoms do worsen or reoccur. Allergies Allergy/AdvReac Type Severity Reaction Status Date / Time diphenhydramine AdvReac SEVERE Verified 02/28/24 06:41 [From Benadryl] SNEEZING Laboratory Results WBC 4.76 10*3/uL (4.50-10.00) 02/27/25 10:03 RBC 4.02 10*6/uL (4.10-5.20) L 02/27/25 10:03 Hgb 12.3 g/dL (12.0-15.0) 02/27/25 10:03 Hct 36.6 % (37.2-46.3) L 02/27/25 10:03 MCV 91.0 fL (80.0-97.0) 02/27/25 10:03 MCH 30.6 pg (27.0-32.0) 02/27/25 10:03 MCHC 33.6 g/dL (32.0-37.0) 02/27/25 10:03 Plt Count 199 10*3/uL (140-440) 02/27/25 10:03 MPV 12.4 fL (9.5-12.2) H 02/27/25 10:03 Immature Gran % (Auto) 0.2 % 02/27/25 10:03 Neutrophils % 44.9 % 02/27/25 10:03 Lymphocytes % 41.0 % 02/27/25 10:03 Monocytes % 5.9 % 02/27/25 10:03 Eosinophils % 6.9 % 02/27/25 10:03 Basophils % 1.1 % 02/27/25 10:03 Immature Gran # 0.01 10*3/uL (0.00-0.04) 02/27/25 10:03 Neutrophils # 2.14 10*3/uL (1.80-7.70) 02/27/25 10:03 Lymphocytes # 1.95 10*3/uL (0.90-5.00) 02/27/25 10:03 Monocytes # 0.28 10*3/uL (0.20-1.00) 02/27/25 10:03 Eosinophils # 0.33 10*3/uL (0.04-0.35) 02/27/25 10:03 Basophils # 0.05 10*3/uL (0.00-0.10) 02/27/25 10:03 Sodium 136 mmol/L (137-145) L 02/27/25 10:03 Potassium 4.0 mmol/L (3.5-5.1) 02/27/25 10:03 Chloride 104 mmol/L (98-107) 02/27/25 10:03 Carbon Dioxide 24 mmol/L (22-30) 02/27/25 10:03 Anion Gap 8 mmol/L 02/27/25 10:03 BUN 12 mg/dL (7-17) 02/27/25 10:03 Creatinine 0.69 mg/dL (0.52-1.04) 02/27/25 10:03 Est GFR (CKD-EPI)AfAm >90 (>60 ml/min/1.73 sqM) 02/27/25 10:03 Est GFR (CKD-EPI)NonAf >90 (>60 ml/min/1.73 sqM) 02/27/25 10:03 Glucose 81 mg/dL (74-99) 02/27/25 10:[address] Glu mg/dL 85 mg/dL 02/27/25 10:03 Hemoglobin A1c 4.6 % (<=6.0) 02/27/25 10:03 Calcium 8.8 mg/dL (8.4-10.2) 02/27/25 10:03 Total Bilirubin 0.3 mg/dL (0.2-1.3) 02/27/25 10:03 AST 20 U/L (14-36) 02/27/25 10:03 ALT 20 U/L (4-34) 02/27/25 10:03 Alkaline Phosphatase 58 U/L (38-126) 02/27/25 10:03 Total Protein 5.6 g/dL (6.3-8.2) L 02/27/25 10:03 Albumin 3.2 g/dL (3.5-5.0) L 02/27/25 10:03 Triglycerides 78.00 mg/dL (0.00-149.00) 02/27/25 10:03 Cholesterol 141.00 mg/dL (0.00-200.00) 02/27/25 10:03 LDL Cholesterol, Calc 71.7 mg/dL (0.0-131.0) 02/27/25 10:03 VLDL Cholesterol, Calc 15.60 mg/dL (5.00-40.00) 02/27/25 10:03 HDL Cholesterol 53.70 mg/dL (40.00-60.00) 02/27/25 10:03 Cholesterol/HDL Ratio 2.63 Ratio 02/27/25 10:03 Urine HCG, Qual Not Detected (Not Detectd) 02/27/25 08:50 Urine Opiates Screen Negative (Negative) 02/27/25 08:50 Urine Methadone Screen Negative (Negative) 02/27/25 08:50 Ur Propoxyphene Screen Negative (Negative) 02/27/25 08:50 Urine Barbiturates Negative (Negative) 02/27/25 08:50 Ur Phencyclidine Scrn Negative (Negative) 02/27/25 08:50 Ur Amphetamine Screen Negative (Negative) 02/27/25 08:50 U Benzodiazepines Scrn Positive (Negative) A 02/27/25 08:50 [place] 0.2 mmol/L 02/28/25 07:00 Urine Cocaine Screen Negative (Negative) 02/27/25 08:50 U Cannabinoids Screen Negative (Negative) 02/27/25 08:50 Urine Alcohol Negative (Negative) 02/27/25 08:50 U Creatinine Drug Scrn 259.0 mg/dL (>=20.0) 02/27/25 08:50 Vital Signs Temp 98.1 F 02/28/25 08:27 Pulse 107 H 02/28/25 08:27 Resp 20 02/28/25 08:27 BP 98/68 02/28/25 08:27 Pulse Ox 100 02/28/25 08:27 FiO2 Patient Condition at Discharge: Stable Plan - Discharge Summary New Discharge Prescriptions: New Nicotine 14Mg/24Hr Patch [Habitrol] 1 patch TRANSDERM DAILY 14 Days #14 patch Topiramate [Topamax] 100 mg PO DAILY 30 Days #30 tab Acetaminophen Tab [Tylenol] 650 mg PO Q4HR PRN tab PRN Reason: Mild Pain (Scale 1 To 3) hydrOXYzine HCL [Atarax] 50 mg PO BID PRN 30 Days #60 tab PRN Reason: Anxiety lamoTRIgine [LaMICtal] 25 mg PO BID 30 Days #60 tab [place] Carbonate 450 mg PO DAILY 30 Days #90 capsule Melatonin 10 mg PO HS 30 Days #60 tab Desvenlafaxine Succinate [Pristiq ER] 100 mg PO DAILY 30 Days #60 tab Continue Folic Acid 1 mg PO DAILY tab Multivitamins, Thera [Multivitamin (formulary)] 1 each PO DAILY tab Thiamine [Vitamin B-1] 100 mg PO DAILY tab Discontinued [place] Carbonate 300 mg PO HS 30 Days #30 cap Desvenlafaxine Succinate [Pristiq ER] 100 mg PO DAILY 30 Days #60 tab Nicotine 21Mg/24Hr Patch [Habitrol] 1 patch TRANSDERM DAILY 14 Days #14 patch Topiramate [Topamax] 50 mg PO BID 30 Days #120 tab hydrOXYzine pamoate [Vistaril] 50 mg PO DAILY PRN 30 Days #60 cap PRN Reason: Anxiety Discharge Medication List Folic Acid 1 mg PO DAILY tab 11/16/24 [Rx] Multivitamins, Thera [Multivitamin (formulary)] 1 each PO DAILY tab 11/16/24 [Rx] Thiamine [Vitamin B-1] 100 mg PO DAILY tab 11/16/24 [Rx] Acetaminophen Tab [Tylenol] 650 mg PO Q4HR PRN tab 02/28/25 [Rx] Desvenlafaxine Succinate [Pristiq ER] 100 mg PO DAILY 30 Days #60 tab 02/28/25 [Rx] [place] Carbonate 450 mg PO DAILY 30 Days #90 capsule 02/28/25 [Rx] Melatonin 10 mg PO HS 30 Days #60 tab 02/28/25 [Rx] Nicotine 14Mg/24Hr Patch [Habitrol] 1 patch TRANSDERM DAILY 14 Days #14 patch 02/28/25 [Rx] Topiramate [Topamax] 100 mg PO DAILY 30 Days #30 tab 02/28/25 [Rx] hydrOXYzine HCL [Atarax] 50 mg PO BID PRN 30 Days #60 tab 02/28/25 [Rx] lamoTRIgine [LaMICtal] 25 mg PO BID 30 Days #60 tab 02/28/25 [Rx] Follow up Appointment(s)/Referral(s): [facility] [Outside] - 03/05/25 2:00 pm (03-05-25 at 2:00 with Ml Amin) Activity/Diet/Wound Care/Special Instructions: [facility] Discharge Info Avoid the use of street drugs and alcohol. Take all medications as prescribed. When you are in need of refills on your medications, please contact your outpatient medical provider and/or outpatient psychiatrist. Please go to your scheduled outpatient appointments for aftercare treatment. If symptoms return or become worse, call the crisis line at or and/or visit the nearest emergency room for assistance. [place] [facility] and Crisis Lifeline - call or text [phone]. Discharge Disposition: HOME SELF-CARE
== END 2025-02-28 12:11 | disposition home or self-care (01) | DRG 753 ==
LOC: 3MHU 13:45
PROVIDERS: ADMIT Psychiatry & Neurology Psychiatry; ATTEND Psychiatry & Neurology Psychiatry
DX: F31.9 Bipolar disorder, unspecified (principal); F10.239 Alcohol dependence with withdrawal, unspecified; F14.10 Cocaine abuse, uncomplicated; F15.20 Other stimulant dependence, uncomplicated; F17.290 Nicotine dependence, other tobacco product, uncomplicated; F25.9 Schizoaffective disorder, unspecified; G35 Multiple sclerosis; F41.9 Anxiety disorder, unspecified; F43.20 Adjustment disorder, unspecified; F43.10 Post-traumatic stress disorder, unspecified; F60.89 Other specific personality disorders; G40.909 Epilepsy, unspecified, not intractable, without status epilepticus; G43.909 Migraine, unspecified, not intractable, without status migrainosus; R45.851 Suicidal ideations; Y90.8 Blood alcohol level of 240 mg/100 ml or more; Z79.899 Other long term (current) drug therapy; Z86.59 Personal history of other mental and behavioral disorders; Z71.41 Alcohol abuse counseling and surveillance of alcoholic; Z71.51 Drug abuse counseling and surveillance of drug abuser; Z88.8 Allergy status to other drugs, medicaments and biological substances; Z65.3 Problems related to other legal circumstances
CPT/HCPCS: 80053; 80061; 80178; 80306; 81025; 83036; 85025